=== PATIENT | male | born 1975 | race African-American/Black ===

== ENCOUNTER 2017-09-25 17:48 | Emergency (ER) | payer OTHER ==
[2017-09-25 20:21] LABS: Absolute Lymphocytes (CBC) 3.4 K/uL (0.7-4.9); Absolute Monocytes 0.7 K/uL (0.1-1.3); Absolute Neutrophil 3.7 K/uL (1.8-8.0); Basophils % 1.2 % (0-1.3); Eosinophils % 9.2 % (0-4.4); Hematocrit 39.9 % (39.6-49.0); Lymphocytes % 38.4 % (15.3-44.8); MCH 26.8 pg (27.0-35.0); MPV 7.4 fL (7.6-11.3); Monocytes % 8.3 % (3.3-12.3); RBC Red Blood Cell Count 4.87 M/uL (4.33-5.43)
[2017-09-25] MEDS ORDERED: ONDANSETRON 4 MG/2 ML VIAL ONE (20:29)
[2017-09-25] MEDS ORDERED: MORPHINE 4 MG/ML SYR ONE (20:29)
[2017-09-25] MEDS ORDERED: NA CHLORIDE 0.9% 1,000 ML ONE (20:29)
[2017-09-25 20:35] LABS: Bicarbonate 26 mEq/L (21-31); Glucose Level 120 mg/dL (65-120); Lipase 28 U/L (22-51); Potassium 3.4 mEq/L (3.6-5.0); Sodium Level 137 mEq/L (135-145)
[2017-09-25 20:41] LABS: ALT/SGPT 37 IU/L (10-60); AST/SGOT 40 IU/L (10-42); Albumin 4.3 g/dL (3.2-5.5); Alkaline Phosphatase 56 IU/L (42-121); Amylase Level 49 U/L (28-100); BUN Blood Urea Nitrogen 15 mg/dL (6-20); Bilirubin Direct < 0.1 mg/dL (0-0.2); Bilirubin Total 0.8 mg/dL (0.3-1.2); Protein, Total 7.7 g/dL (6.0-8.3)
[2017-09-25 21:08] LABS: Urine Blood NEGATIVE (NEG); Urine Glucose NEGATIVE (NEG); Urine Protein NEGATIVE (NEG); Urine pH 5.5 (5.0-7.0)
--- NOTE | 2017-09-25 21:13 | RAD REPORT ---
EXAM DESCRIPTION: CT - Stone Protocol - 09/25/2017 8:54 pm CLINICAL HISTORY: Abdominal pain, right flank pain, prior right nephrectomy COMPARISON: July 2015. TECHNIQUE: Axial 5 mm thick images were obtained without oral or IV contrast. The [id number] span s the entirety of the system partially obscuring uppermost abdomen and lung bases. All CT scans are performed using dose optimization technique as appropriate and may include automated exposure control or mA/KV adjustment according to patient size. FINDINGS: No hydronephrosis is present and no obstructing ureteral calculi. No suspicious renal mass es. Isodense masses and pyelonephritis are not excluded on a stone protocol CT scan. No urinary bladd er suspicious finding. No mass or focal abnormality in the right renal fossa. Imaged portions of the liver, spleen and pancreas show no suspicious findings on non-contrast imaging . Gallbladder is contracted. No biliary tree dilatation. No significant adrenal finding. No suspicious bowel findings. Appendix is normal. No mass or bulky lymphadenopathy. Very minimal umbilical hernia is present. There is postsurgical adolfo nge along the lower abdominal wall and subcutaneous fat. No free air, free fluid or inflammatory stra nding. No significant bony abnormality. IMPRESSION: Noncontrast CT abdomen and pelvis imaging shows no acute or suspicious finding. Exam sensitivity is decreased in the absence of oral and IV contrast. No clear change from the 2016 c omparison.
[2017-09-25 21:15] LABS: Urine Bacteria <20 /HPF (NONE SEEN); Urine Culture Reflex Order NOT NEEDED; Urine RBC <5 /HPF (NONE SEEN)
[2017-09-25] MEDS ORDERED: POTASSIUM CL SA 10 MEQ TAB PO ONE (21:21)
--- NOTE | 2017-09-25 21:25 | ER ---
Nurse's Notes [facility] Name: Tony Mckeon Age: 41 yrs Sex: Male : 1975 Arrival Date: 09/25/2017 Time: 17:51 Bed 20 Private MD: Wily Borges B Diagnosis: Right flank pain Presentation: 09/25 18:14 Presenting complaint: Patient states: Right flank pain 10/10 that radiates to front of hb abdomen since last night. Denies urinary s/s. Hx Kidney CA w/ left nephrectomy. Transition of care: patient was not received from another setting of care. Onset of symptoms was September 24, 2017. Risk Assessment: Do you want to hurt yourself or someone else? Patient reports no desire to harm self or others. Care prior to arrival: None. 18:14 Method Of Arrival: Ambulatory hb 18:14 Acuity: KRISTEN 3 hb 20:50 Initial Sepsis Screen: Does the patient meet any 2 criteria? No. Patient's initial bs1 sepsis screen is negative. Does the patient have a suspected source of infection? No. Patient's initial sepsis screen is negative. Historical: - Allergies: 18:17 No Known Allergies; hb - Home Meds: 18:17 Norvasc 10 mg Oral tab 1 tab once daily [Active]; Breo Ellipta 100-25 mcg/dose hb inhalation dsdv 1 puff once daily [Active]; Proventil Inhl [Active]; Symbicort Inh [Active]; Singulair 10 mg Oral tab 1 tab once daily [Active]; - PMHx: 18:17 Asthma; Bipolar disorder; Gout; Hypertension; Renal Cancer; hb - PSHx: 18:17 kidney removal - left; hb - Immunization history:: Adult Immunizations up to date. - Social history:: Smoking status: Patient/guardian denies using tobacco. - Ebola Screening: : No symptoms or risks identified at this time. Screenin:49 Abuse screen: Denies threats or abuse. Denies injuries from another. Nutritional bs1 screening: No deficits noted. Tuberculosis screening: No symptoms or risk factors identified. Fall Risk None identified. Assessment: 20:46 General: Appears in no apparent distress. uncomfortable, well groomed, well nourished, bs1 Behavior is cooperative, anxious. Pain: Complains of pain in right lower/upper abdomen Pain radiates to right flank. 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 Cardiovascular: Denies chest pain, shortness of breath, Heart tones S1 S2 present Capillary refill < 3 seconds Patient's skin is warm and dry. Respiratory: Airway is patent Trachea midline Respiratory effort is even, unlabored, Respiratory pattern is regular, symmetrical, Breath sounds are clear bilaterally. GI: Abdomen is round distended, Bowel sounds present X 4 quads. Abdomen is tender to palpation in right upper quadrant and right lower quadrant Reports lower abdominal pain, upper abdominal pain. : Reports pain in right flank(s). EENT: No signs and/or symptoms were reported regarding the EENT system. Derm: Skin is intact, Skin is pink, warm \T\ dry. Musculoskeletal: Circulation, motion, and sensation intact. Capillary refill < 3 seconds, Range of motion: intact in all extremities. 21:43 Reassessment: PT D/C HOME AMBULATORY WITH FAMILY, DX WITH R FLANK PAIN. bp Vital Signs: 18:15 BP 167 / 104; Pulse 89; Resp 18; Temp 98.3; Pulse Ox 100% on R/A; Weight 88.45 kg; hb Height 5 ft. 7 in. (170.18 cm); Pain 10/10; 21:00 BP 126 / 81; Pulse 48; Resp 16; Pulse Ox 100% ; bp 21:45 BP 118 / 74; Pulse 47; Resp 14; Pulse Ox 98% ; bp 18:15 Body Mass Index 30.54 (88.45 kg, 170.18 cm) hb ED Course: 17:51 Patient arrived in ED. sb2 17:52 Wily Borges MD is Private Physician. sb2 18:15 Triage completed. hb 18:15 Arm band placed on right wrist. hb 19:46 Madhav Walters MD is Attending Physician. pkl 20:06 Inserted saline lock: 20 gauge in right antecubital area, using aseptic technique. bs1 20:10 Onofre Martinez, MICHELLE is Primary Nurse. bp 20:53 CT completed. Patient tolerated procedure well. Patient moved to CT via wheelchair. Patient moved back from CT. 20:54 CT Stone Protocol In Process Unspecified. EDMS 21:00 Patient has correct armband on for positive identification. Bed in low position. Call bp light in reach. Side rails up X2. Adult w/ patient. 21:23 Wily Borges MD is Referral Physician. pkl 21:43 No provider procedures requiring assistance completed. IV discontinued, intact, bp bleeding controlled, No redness/swelling at site. Pressure dressing applied. Administered Medications: 20:33 Drug: morphine 4 mg Route: IVP; Site: right antecubital; bs1 21:21 Follow up: Response: Pain is decreased bp 20:33 Drug: Zofran 4 mg Route: IVP; Site: right antecubital; bs1 21:21 Follow up: Response: Nausea is decreased bp 20:34 Drug: NS 0.9% 1000 ml Route: IV; Rate: 125 ml/hr; Site: right antecubital; bs1 21:46 Follow up: IV Status: Completed infusion; IV Intake: 250ml bp 21:21 Drug: K-Dur 20 mEq Route: PO; bp 21:21 Follow up: Response: No adverse reaction bp Intake: 21:46 IV: 250ml; Total: 250ml. bp Outcome: 21:24 Discharge ordered by . pkl 21:43 Discharged to home ambulatory, with family. bp 21:43 Condition: stable 21:43 Discharge instructions given to patient, Instructed on discharge instructions, follow up and referral plans. medication usage, Demonstrated understanding of instructions, follow-up care, medications, Prescriptions given X 1. 21:45 Patient left the ED. bp Signatures: Dispatcher [employer] EDMS Madhav Walters MD MD pkl Dick Bradley Heather, RN RN hb Peltier, Brian RN RN Idalia Teresa RN RN bs1 Opal Roberson2
--- NOTE | 2017-09-25 21:25 | EDPHYS ---
Physician Documentation [facility] Name: Tony Mckeon Age: 41 yrs Sex: Male : 1975 Arrival Date: 09/25/2017 Time: 17:51 Bed 20 Private MD: Wily Borges B ED Physician Madhav Walters HPI: 09/25 19:55 This 41 yrs old Black Male presents to ER via Ambulatory with complaints of Flank Pain. pkl 19:55 The patient complains of pain in the right flank. Location: right lower quadrant. pkl Onset: The symptoms/episode began/occurred last night. Associated signs and symptoms: Pertinent positives: nausea. Patient has left kidney removed for renal cancer 6 years ago. Historical: - Allergies: 18:17 No Known Allergies; hb - Home Meds: 18:17 Norvasc 10 mg Oral tab 1 tab once daily [Active]; Breo Ellipta 100-25 mcg/dose hb inhalation dsdv 1 puff once daily [Active]; Proventil Inhl [Active]; Symbicort Inh [Active]; Singulair 10 mg Oral tab 1 tab once daily [Active]; - PMHx: 18:17 Asthma; Bipolar disorder; Gout; Hypertension; Renal Cancer; hb - PSHx: 18:17 kidney removal - left; hb - Immunization history:: Adult Immunizations up to date. - Social history:: Smoking status: Patient/guardian denies using tobacco. - Ebola Screening: : No symptoms or risks identified at this time. ROS: 19:55 Eyes: Negative for injury, pain, redness, and discharge, ENT: Negative for injury, pkl pain, and discharge, Neck: Negative for injury, pain, and swelling, Cardiovascular: Negative for chest pain, palpitations, and edema, Respiratory: Negative for shortness of breath, cough, wheezing, and pleuritic chest pain, Abdomen/GI: Negative for abdominal pain, nausea, vomiting, diarrhea, and constipation. 19:55 Back: Positive for flank pain, on the right. 19:55 : Negative for urinary symptoms. 19:55 MS/extremity: Negative for acute changes. 19:55 Skin: Negative for rash. 19:55 Neuro: Negative for altered mental status. Exam: 19:55 Head/Face: Normocephalic, atraumatic. Eyes: Pupils equal round and reactive to light, pkl extra-ocular motions intact. Lids and lashes normal. Conjunctiva and sclera are non-icteric and not injected. Cornea within normal limits. Periorbital areas with no swelling, redness, or edema. ENT: Nares patent. No nasal discharge, no septal abnormalities noted. Tympanic membranes are normal and external auditory canals are clear. Oropharynx with no redness, swelling, or masses, exudates, or evidence of obstruction, uvula midline. Mucous membranes moist. Neck: Trachea midline, no thyromegaly or masses palpated, and no cervical lymphadenopathy. Supple, full range of motion without nuchal rigidity, or vertebral point tenderness. No Meningismus. Chest/axilla: Normal chest wall appearance and motion. Nontender with no deformity. No lesions are appreciated. Cardiovascular: Regular rate and rhythm with a normal S1 and S2. No gallops, murmurs, or rubs. Normal PMI, no JVD. No pulse deficits. Respiratory: Lungs have equal breath sounds bilaterally, clear to auscultation and percussion. No rales, rhonchi or wheezes noted. No increased work of breathing, no retractions or nasal flaring. Abdomen/GI: Soft, non-tender, with normal bowel sounds. No distension or tympany. No guarding or rebound. No evidence of tenderness throughout. 19:55 Back: pain, that is moderate, of the right flank. 19:55 : Exam negative for acute changes. 19:55 Musculoskeletal/extremity: Exam is negative for acute changes. 19:55 Skin: Exam negative for rash. 19:55 Neuro: Orientation: is normal, Mentation: is normal, Cranial nerves: grossly normal, Motor: is normal. Vital Signs: 18:15 BP 167 / 104; Pulse 89; Resp 18; Temp 98.3; Pulse Ox 100% on R/A; Weight 88.45 kg; hb Height 5 ft. 7 in. (170.18 cm); Pain 10/10; 21:00 BP 126 / 81; Pulse 48; Resp 16; Pulse Ox 100% ; bp 21:45 BP 118 / 74; Pulse 47; Resp 14; Pulse Ox 98% ; bp 18:15 Body Mass Index 30.54 (88.45 kg, 170.18 cm) hb MDM: 19:46 Patient medically screened. pkl 21:23 Data reviewed: vital signs, nurses notes, lab test result(s), radiologic studies, CT pkl scan. 09/25 19:55 Order name: Amylase, Serum pkl 09/25 19:55 Order name: Basic Metabolic Panel pkl 09/25 19:55 Order name: CBC with Diff pkl 09/25 19:55 Order name: Creatinine for Radiology; Complete Time: 20:35 pkl 09/25 19:55 Order name: Hepatic Function; Complete Time: 20:44 pkl 09/25 19:55 Order name: Lipase; Complete Time: 20:44 pkl 09/25 19:55 Order name: Urine Microscopic Only; Complete Time: 21:18 pkl 09/25 19:55 Order name: Amylase Level; Complete Time: 20:44 EDMS 09/25 19:55 Order name: Basic Metabolic Panel; Complete Time: 20:44 EDMS 09/25 19:55 Order name: CBC with Automated Diff; Complete Time: 20:34 EDMS 09/25 20:33 Order name: Urine Dipstick--Ancillary (enter results); Complete Time: 21:09 ms 09/25 20:36 Order name: CT Stone Protocol; Complete Time: 21:18 pkl 09/25 19:55 Order name: IV Saline Lock; Complete Time: 20:26 pkl 09/25 19:55 Order name: Labs collected and sent; Complete Time: 20:34 pkl 09/25 19:55 Order name: Urine Dipstick-Ancillary (obtain specimen); Complete Time: 21:25 pkl Administered Medications: 20:33 Drug: morphine 4 mg Route: IVP; Site: right antecubital; bs1 21:21 Follow up: Response: Pain is decreased bp 20:33 Drug: Zofran 4 mg Route: IVP; Site: right antecubital; bs1 21:21 Follow up: Response: Nausea is decreased bp 20:34 Drug: NS 0.9% 1000 ml Route: IV; Rate: 125 ml/hr; Site: right antecubital; bs1 21:46 Follow up: IV Status: Completed infusion; IV Intake: 250ml bp 21:21 Drug: K-Dur 20 mEq Route: PO; bp 21:21 Follow up: Response: No adverse reaction bp Disposition: 09/25/17 21:24 Discharged to Home. Impression: Right flank pain. - Condition is Stable. - Prescriptions for Tylenol- Codeine #3 300-30 mg Oral Tablet - take 1 tablet by ORAL route every 6 hours As needed; 20 tablet. - Medication Reconciliation Form, Thank You Letter, Antibiotic Education, Prescription Opioid Use, Work release form form. - Follow up: Wily Borges MD; When: 2 - 3 days; Reason: Re-evaluation by your physician. - Problem is new. - Symptoms have improved. Signatures: Dispatcher [employer] EDMS Madhav Walters MD MD pkl Lucina Thompson, RN RN Onofre Martinez, RN RN bp Idalia Torres RN RN bs1 Corrections: (The following items were deleted from the chart) 21:45 21:24 09/25/2017 21:24 Discharged to Home. Impression: Right flank pain. Condition is bp Stable. Forms are Medication Reconciliation Form, Thank You Letter, Antibiotic Education, Prescription Opioid Use. Follow up: Wily Borges; When: 2 - 3 days; Reason: Re-evaluation by your physician. Problem is new. Symptoms have improved. pkl
== END 2017-09-25 21:45 | disposition home or self-care (01) ==
LOC: ER 17:48
DX: R10.9 Unspecified abdominal pain (principal); I10 Essential (primary) hypertension; F31.9 Bipolar disorder, unspecified; Z85.528 Personal history of other malignant neoplasm of kidney
CPT/HCPCS: 36415; 74176; 76377; 80048; 80076; 82150; 83690; 85025; J2405; J7030; 81003; 81015; 96361; 96374; 96375; 99284

== ENCOUNTER 2017-11-07 11:09 | Emergency (ER) | payer OTHER ==
--- NOTE | 2017-11-07 13:25 | EDPHYS ---
Physician Documentation [facility] Name: Tony Mckeon Age: 41 yrs Sex: Male : 1975 Arrival Date: 11/07/2017 Time: 11:14 Bed 23 Private MD: Wily Borges B ED Physician Lester Navarro HPI: 11/07 13:13 This 41 yrs old Black Male presents to ER via Ambulatory with complaints of Skin adolfo Problem. 13:13 The patient presents to the emergency department with pain in the rectal area, that is adolfo moderate. Onset: The symptoms/episode began/occurred 3 day(s) ago. Context: the patient has no known special context relating to the rectal area complaint(s). Modifying factors: The symptoms are alleviated by remaining still, The symptoms are aggravated by bowel movement, sitting position. Associate signs and symptoms: The patient has no apparent associated signs or symptoms. The patient has not experienced similar symptoms in the past. Historical: - Allergies: 11: No Known Allergies; aj - Home Meds: : Breo Ellipta 100-25 mcg/dose inhalation dsdv 1 puff once daily [Active]; Norvasc 10 mg aj Oral tab 1 tab once daily [Active]; Proventil Inhl [Active]; - PMHx: 11:29 Asthma; Bipolar disorder; Gout; Hypertension; Renal Cancer; aj - PSHx: 11:29 kidney removal - right; aj - Immunization history:: Adult Immunizations up to date. - Social history:: Smoking status: Patient/guardian denies using tobacco. - Ebola Screening: : Patient negative for fever greater than or equal to 101.5 degrees Fahrenheit, and additional compatible Ebola Virus Disease symptoms Patient denies exposure to infectious person Patient denies travel to an Ebola-affected area in the 21 days before illness onset No symptoms or risks identified at this time. - Family history:: not pertinent. ROS: 13:13 Constitutional: Negative for fever, chills, and weight loss, Eyes: Negative for injury, adolfo pain, redness, and discharge, ENT: Negative for injury, pain, and discharge, Neck: Negative for injury, pain, and swelling, Cardiovascular: Negative for chest pain, palpitations, and edema, Respiratory: Negative for shortness of breath, cough, wheezing, and pleuritic chest pain, Back: Negative for injury and pain, : Negative for injury, bleeding, discharge, and swelling, MS/Extremity: Negative for injury and deformity, Skin: Negative for injury, rash, and discoloration, Neuro: Negative for headache, weakness, numbness, tingling, and seizure, Psych: Negative for depression, anxiety, suicide ideation, homicidal ideation, and hallucinations, Allergy/Immunology: Negative for hives, rash, and allergies, Endocrine: Negative for neck swelling, polydipsia, polyuria, polyphagia, and marked weight changes, Hematologic/Lymphatic: Negative for swollen nodes, abnormal bleeding, and unusual bruising. 13:13 Abdomen/GI: Positive for abdominal pain, rectal pain. Exam: 13:13 Constitutional: This is a well developed, well nourished patient who is awake, alert, adolfo and in no acute distress. Head/Face: Normocephalic, atraumatic. Eyes: Pupils equal round and reactive to light, extra-ocular motions intact. Lids and lashes normal. Conjunctiva and sclera are non-icteric and not injected. Cornea within normal limits. Periorbital areas with no swelling, redness, or edema. ENT: Nares patent. No nasal discharge, no septal abnormalities noted. Tympanic membranes are normal and external auditory canals are clear. Oropharynx with no redness, swelling, or masses, exudates, or evidence of obstruction, uvula midline. Mucous membranes moist. Neck: Trachea midline, no thyromegaly or masses palpated, and no cervical lymphadenopathy. Supple, full range of motion without nuchal rigidity, or vertebral point tenderness. No Meningismus. Chest/axilla: Normal chest wall appearance and motion. Nontender with no deformity. No lesions are appreciated. Cardiovascular: Regular rate and rhythm with a normal S1 and S2. No gallops, murmurs, or rubs. Normal PMI, no JVD. No pulse deficits. Respiratory: Lungs have equal breath sounds bilaterally, clear to auscultation and percussion. No rales, rhonchi or wheezes noted. No increased work of breathing, no retractions or nasal flaring. Back: No spinal tenderness. No costovertebral tenderness. Full range of motion. Male : Normal genitalia with no discharge or lesions. Skin: Warm, dry with normal turgor. Normal color with no rashes, no lesions, and no evidence of cellulitis. MS/ Extremity: Pulses equal, no cyanosis. Neurovascular intact. Full, normal range of motion. Neuro: Awake and alert, GCS 15, oriented to person, place, time, and situation. Cranial nerves II-XII grossly intact. Motor strength 5/5 in all extremities. Sensory grossly intact. Cerebellar exam normal. Normal gait. Psych: Awake, alert, with orientation to person, place and time. Behavior, mood, and affect are within normal limits. 13:13 Abdomen/GI: Rectal exam: tenderness, that is moderate, at 9 am internally before the anal verge, firmness, consistent with hemerroid. Vital Signs: 11:29 BP 149 / 109; Pulse 69; Resp 18; Temp 98.6; Pulse Ox 98% on R/A; Weight 86.18 kg; aj Height 5 ft. 7 in. (170.18 cm); 13:38 BP 148 / 96; Pulse 70; Resp 18; Pulse Ox 98% on R/A; kr2 11:29 Body Mass Index 29.76 (86.18 kg, 170.18 cm) MDM: 12:42 [facility]. [facility] 13:13 Data reviewed: vital signs, nurses notes. [facility] Administered Medications: 13:35 Drug: Motrin 800 mg Route: PO; kr2 13:40 Follow up: Response: Medication administered at discharge. [facility] 13:35 Drug: Cipro 500 mg Route: PO; kr2 13:40 Follow up: Response: Medication administered at discharge. kr2 Disposition: 11/07/17 13:24 Discharged to Home. Impression: Other hemorrhoids - painful, internal. - Condition is Stable. - Discharge Instructions: High-Fiber Diet, Hemorrhoids, How to Take a Sitz Bath, Hemorrhoids, [id number], Surgical Procedures for Hemorrhoids, Nonsurgical Procedures for Hemorrhoids, Care After, Nonsurgical Procedures for Hemorrhoids. - Prescriptions for Colace 100 mg Oral Tablet - take 1 tablet by ORAL route every 12 hours; 14 tablet. Tylenol- Codeine #3 300-30 mg Oral Tablet - take 2 tablets by ORAL route every 6 hours As needed; 25 tablet. Cipro 500 mg Oral Tablet - take 1 tablet by ORAL route every 12 hours for 7 days; 14 tablet. Anusol- HC 25 mg Rectal Suppository - insert 1 suppository by RECTAL route every 12 hours As needed; 20 suppository. - Medication Reconciliation Form, Thank You Letter, Antibiotic Education, Prescription Opioid Use, Work release form form. - Follow up: Wily Borges MD; When: 2 - 3 days; Reason: Recheck today's complaints, Continuance of care, Re-evaluation by your physician. Follow up: Celio Zamora MD; When: 1 - 2 days; Reason: Recheck today's complaints, Re-evaluation by your physician. Follow up: Judy Rodríguez MD; When: 2 - 3 days; Reason: Recheck today's complaints, Re-evaluation by your physician. - Problem is new. - Symptoms have improved. Signatures: Lea Rocha RN RN Lester Main MD MD cha Reaves, Karey, RN RN kr2 Corrections: (The following items were deleted from the chart) 13:26 13:24 11/07/2017 13:24 Discharged to Home. Impression: Other hemorrhoids - painful, adolfo internal. Condition is Stable. Forms are Medication Reconciliation Form, Thank You Letter, Antibiotic Education, Prescription Opioid Use. Follow up: Wily Borges; When: 2 - 3 days; Reason: Recheck today's complaints, Continuance of care, Re-evaluation by your physician. Follow up: Celio Zamora; When: 1 - 2 days; Reason: Recheck today's complaints, Re-evaluation by your physician. Problem is new. Symptoms have improved. adolfo 13:40 13:26 11/07/2017 13:24 Discharged to Home. Impression: Other hemorrhoids - painful, kr2 internal. Condition is Stable. Discharge Instructions: High-Fiber Diet, Hemorrhoids, How to Take a Sitz Bath, Hemorrhoids, [id number], Surgical Procedures for Hemorrhoids, Nonsurgical Procedures for Hemorrhoids, Care After, Nonsurgical Procedures for Hemorrhoids. Prescriptions for Colace 100 mg Oral Tablet - take 1 tablet by ORAL route every 12 hours; 14 tablet, Tylenol-Codeine #3 300-30 mg Oral Tablet - take 2 tablets by ORAL route every 6 hours As needed; 25 tablet, Cipro 500 mg Oral Tablet - take 1 tablet by ORAL route every 12 hours for 7 days; 14 tablet, Anusol-HC 25 mg Rectal Suppository - insert 1 suppository by RECTAL route every 12 hours As needed; 20 suppository. and Forms are Medication Reconciliation Form, Thank You Letter, Antibiotic Education, Prescription Opioid Use. Follow up: Wily Borges; When: 2 - 3 days; Reason: Recheck today's complaints, Continuance of care, Re-evaluation by your physician. Follow up: Celio Zamora; When: 1 - 2 days; Reason: Recheck today's complaints, Re-evaluation by your physician. Follow up: Judy Rodríguez; When: 2 - 3 days; Reason: Recheck today's complaints, Re-evaluation by your physician. Problem is new. Symptoms have improved. adolfo
--- NOTE | 2017-11-07 13:25 | ER ---
Nurse's Notes [facility] Name: Tony Mckeon Age: 41 yrs Sex: Male : 1975 Arrival Date: 11/07/2017 Time: 11:14 Bed 23 Private MD: Wily Borges B Diagnosis: Other hemorrhoids-painful, internal Presentation: 11/07 11:27 Presenting complaint: Patient states: "I have a boil next to my anus, my said it aj was a hemorrhoid. It's painful". Transition of care: patient was not received from another setting of care. Onset of symptoms was October 19, 2017. Risk Assessment: Do you want to hurt yourself or someone else? Patient reports no desire to harm self or others. Initial Sepsis Screen: Does the patient meet any 2 criteria? No. Patient's initial sepsis screen is negative. Does the patient have a suspected source of infection? No. Patient's initial sepsis screen is negative. Care prior to arrival: None. 11:27 Method Of Arrival: Ambulatory 11:27 Acuity: KRISTEN 3 aj Triage Assessment: 11:29 General: Appears in no apparent distress. comfortable, Behavior is calm, cooperative, aj appropriate for age. Pain: Complains of pain in anus. Neuro: Level of Consciousness is awake, alert, obeys commands, Oriented to person, place, time, situation, Appropriate for age. Respiratory: Airway is patent Respiratory effort is even, unlabored, Respiratory pattern is regular, symmetrical. : Reports pain at rectum. Derm: Skin is intact, is healthy with good turgor, Skin is pink, warm \\T\\ dry. normal. Historical: - Allergies: 11: No Known Allergies; aj - Home Meds: 11: Breo Ellipta 100-25 mcg/dose inhalation dsdv 1 puff once daily [Active]; Norvasc 10 mg aj Oral tab 1 tab once daily [Active]; Proventil Inhl [Active]; - PMHx: 11: Asthma; Bipolar disorder; Gout; Hypertension; Renal Cancer; aj - PSHx: 11: kidney removal - right; aj - Immunization history:: Adult Immunizations up to date. - Social history:: Smoking status: Patient/guardian denies using tobacco. - Ebola Screening: : Patient negative for fever greater than or equal to 101.5 degrees Fahrenheit, and additional compatible Ebola Virus Disease symptoms Patient denies exposure to infectious person Patient denies travel to an Ebola-affected area in the 21 days before illness onset No symptoms or risks identified at this time. - Family history:: not pertinent. Screenin:38 Abuse screen: Denies threats or abuse. Denies injuries from another. Nutritional kr2 screening: No deficits noted. Tuberculosis screening: No symptoms or risk factors identified. Fall Risk None identified. Assessment: 13:10 General: Appears in no apparent distress. uncomfortable, well groomed, well developed, kr2 well nourished, Behavior is calm, cooperative, appropriate for age. Pain: Complains of pain in anus Pain currently is 8 out of 10 on a pain scale. Quality of pain is described as burning, tender, Is continuous, Alleviated by rest, Aggravated by increased activity. Neuro: Level of Consciousness is awake, alert, obeys commands, Oriented to person, place, time, situation, Appropriate for age. Cardiovascular: Capillary refill < 3 seconds in bilateral fingers. Respiratory: Airway is patent Respiratory effort is even, unlabored, Respiratory pattern is regular, symmetrical. GI: Abdomen is round non-distended. : No signs and/or symptoms were reported regarding the genitourinary system. EENT: Oral mucosa is moist. Derm: Skin is healthy with good turgor, Skin is pink, warm \\T\\ dry. Musculoskeletal: Circulation, motion, and sensation intact. Vital Signs: 11:29 BP 149 / 109; Pulse 69; Resp 18; Temp 98.6; Pulse Ox 98% on R/A; Weight 86.18 kg; aj Height 5 ft. 7 in. (170.18 cm); 13:38 BP 148 / 96; Pulse 70; Resp 18; Pulse Ox 98% on R/A; kr2 11:29 Body Mass Index 29.76 (86.18 kg, 170.18 cm) ED Course: 11:14 Patient arrived in ED. jb7 11:15 Wily Borges MD is Private Physician. jb7 11:28 Triage completed. aj 11:29 Arm band placed on right wrist. Patient placed in waiting room, Patient notified of wait time. 12:42 Lester Navarro MD is Attending Physician. [facility] 12:54 Anitra Mitchell RN is Primary Nurse. kr2 13:21 Wily Borges MD is Referral Physician. [facility] 13:21 Celio Zamora MD is Referral Physician. [facility] 13:26 Judy Rodríguez MD is Referral Physician. [facility] 13:30 No provider procedures requiring assistance completed. Patient did not have IV access kr2 during this emergency room visit. 13:38 Patient has correct armband on for positive identification. Bed in low position. Call kr2 light in reach. Side rails up X 1. Pulse ox on. NIBP on. Door closed. Head of bed elevated. Administered Medications: 13:35 Drug: Motrin 800 mg Route: PO; kr2 13:40 Follow up: Response: Medication administered at discharge. kr2 13:35 Drug: Cipro 500 mg Route: PO; kr2 13:40 Follow up: Response: Medication administered at discharge. kr2 Outcome: 13:24 Discharge ordered by MD. [facility] 13:30 Discharged to home ambulatory. kr2 13:30 Condition: good 13:30 Discharge instructions given to patient, Instructed on discharge instructions, follow up and referral plans. medication usage, Demonstrated understanding of instructions, follow-up care, medications, Prescriptions given X 4. 13:40 Patient left the ED. kr2 Signatures: Lea Rocha, RN RN Lester Main MD MD cha Bryant, Jason jb7 Anitra Mitchell RN RN kr2 Corrections: (The following items were deleted from the chart) 20:51 13:30 Discharge instructions given to patient, Instructed on discharge instructions, kr2 follow up and referral plans. medication usage, Demonstrated understanding of instructions, follow-up care, medications, Prescriptions given X 3, kr2
[2017-11-07] MEDS ORDERED: CIPROFLOXACIN HCL 500 MG TAB ONE (13:31)
[2017-11-07] MEDS ORDERED: IBUPROFEN 400 MG TAB ONE (13:31)
== END 2017-11-07 13:40 | disposition home or self-care (01) ==
LOC: ER 11:09
DX: K64.8 Other hemorrhoids (principal); I10 Essential (primary) hypertension
CPT/HCPCS: 99283

== ENCOUNTER 2018-07-05 09:30 | Emergency (ER) | payer OTHER ==
[2018-07-05 10:03] LABS: Absolute Monocytes 0.6 K/uL (0.1-1.3); Basophils % 1.1 % (0-1.3); Eosinophils % 7.1 % (0-4.4); Hematocrit 41.9 % (39.6-49.0); Lymphocytes % 28.2 % (15.3-44.8); MPV 7.5 fL (7.6-11.3); Protime INR 0.96; RBC Red Blood Cell Count 4.99 M/uL (4.33-5.43)
--- NOTE | 2018-07-05 10:09 | RAD REPORT ---
EXAM DESCRIPTION: RAD - Chest Single View - 07/05/2018 10:03 am CLINICAL HISTORY: CHEST PAIN Chest pain. COMPARISON: CHEST SINGLE VIEW dated 04/01/2015; CHEST SINGLE VIEW dated 03/30/2015; CHEST SINGLE VIE W dated 09/30/2014; CHEST PA AND LAT 2 VIEW dated 10/15/2012 FINDINGS: Portable technique limits examination quality. The lungs are grossly clear. The heart is normal in size. No displaced fractures. IMPRESSION: No acute intrathoracic process suspected.
[2018-07-05 10:35] LABS: ALT/SGPT 29 U/L (12-78); AST/SGOT 17 U/L (15-37); Albumin 3.9 g/dL (3.4-5.0); Alkaline Phosphatase 72 U/L (45-117); BUN Blood Urea Nitrogen 23 mg/dL (7-18); Bicarbonate 25 mmol/L (21-32); Bilirubin Direct < 0.1 mg/dL (0-0.2); Bilirubin Total 0.5 mg/dL (0.2-1.0); Glucose Level 101 mg/dL (74-106); NT PRO-BNP 19 pg/mL (<125); Sodium Level 144 mmol/L (136-145); Troponin (Emerg Dept Use Only) < 0.02 ng/mL (0.0-0.045)
--- NOTE | 2018-07-05 10:44 | EKG ---
Test Date: 2018-07-05 Test Time: 09:49:13 Director Social Service: DORCAS MEASUREMENT RESULTS: Intervals: Rate: 69 ID: [id number] QRSD: 86 QT: 380 QTc: 407 [place]: P: 47 ID: [id number] QRS: 66 T: -30 INTERPRETIVE STATEMENTS: Normal sinus rhythm Minimal voltage criteria for LVH, may be normal variant T wave abnormality, consider inferior ischemia Abnormal ECG Compared to ECG 06/08/2015 18:45:12 Possible ischemia now present Sinus arrhythmia no longer present T-wave abnormality still present Electronically Signed On 07-05-18 10:43:19 CDT by Adrian Roy
[2018-07-05] MEDS ORDERED: predniSONE 20 MG TAB ONE (12:37)
[2018-07-05] MEDS ORDERED: ALBUTEROL 2.5 MG/3 ML NEB SOL ONE (12:37)
[2018-07-05] MEDS ORDERED: IPRATROPIUM BROM 0.5MG/2.5ML ONE (12:37)
--- NOTE | 2018-07-05 13:06 | ER ---
Nurse's Notes [facility] Name: Tony Mckeon Age: 42 yrs Sex: Male : 1975 Arrival Date: 07/05/2018 Time: 09:33 Bed 6 Private MD: Wily Borges B Diagnosis: Chest pain, unspecified;Bronchitis and pneumonitis due to chemicals, gases, fumes and vapors Presentation: 07/05 09:45 Presenting complaint: Patient states: chest pain and headaches x 3 days. Denies fever, ss cough. Transition of care: patient was not received from another setting of care. Onset of symptoms was July 04, 2018. Risk Assessment: Do you want to hurt yourself or someone else? Patient reports no desire to harm self or others. Initial Sepsis Screen: Does the patient meet any 2 criteria? No. Patient's initial sepsis screen is negative. Does the patient have a suspected source of infection? No. Patient's initial sepsis screen is negative. Care prior to arrival: None. 09:45 Method Of Arrival: Ambulatory ss 09:45 Acuity: KRISTEN 3 ss Historical: - Allergies: 09:48 No Known Allergies; ss - Home Meds: 09:48 Breo Ellipta 100-25 mcg/dose inhalation dsdv 1 puff once daily [Active]; Albuterol Inhl ss [Active]; "something for blood pressure" [Active]; - PMHx: 09:48 Asthma; Bipolar disorder; Gout; Hypertension; Renal Cancer; ss - PSHx: 09:48 R nephrectomy; ss - Immunization history:: Adult Immunizations up to date. - Social history:: Smoking status: Patient/guardian denies using tobacco. - Ebola Screening: : Patient denies exposure to infectious person Patient denies travel to an Ebola-affected area in the 21 days before illness onset. Screenin:50 Abuse screen: Denies threats or abuse. Denies injuries from another. Nutritional bp screening: No deficits noted. Tuberculosis screening: No symptoms or risk factors identified. Fall Risk None identified. Assessment: 09:45 General: Appears in no apparent distress. comfortable, Behavior is calm, cooperative, bp appropriate for age. Pain: Complains of pain in chest Pain does not radiate. Pain began 2-3 days ago. Neuro: Level of Consciousness is awake, alert, obeys commands, Oriented to person, place, time, situation, Appropriate for age. Cardiovascular: Rhythm is sinus rhythm. Respiratory: Airway is patent Respiratory effort is even, unlabored, Respiratory pattern is regular, symmetrical. GI: No signs and/or symptoms were reported involving the gastrointestinal system. : No signs and/or symptoms were reported regarding the genitourinary system. EENT: No deficits noted. Derm: No deficits noted. Musculoskeletal: Circulation, motion, and sensation intact. Range of motion: intact in all extremities. 11:10 Reassessment: Patient appears in no apparent distress at this time. Patient and/or ch family updated on plan of care and expected duration. Pain level reassessed. Patient is alert, oriented x 3, equal unlabored respirations, skin warm/dry/pink. pt c/o increase in headache, orders obtained for medication per pt request. 11:58 Reassessment: Patient appears in no apparent distress at this time. No changes from ch previously documented assessment. Patient and/or family updated on plan of care and expected duration. Pain level reassessed. Patient is alert, oriented x 3, equal unlabored respirations, skin warm/dry/pink. pt states he still hurts, song notified of pt status. Vital Signs: 09:48 Resp 15; Temp 97.6(TE); Weight 95.25 kg; Height 5 ft. 7 in. (170.18 cm); Pain 8/10; ss 11:10 BP 126 / 81; Pulse 71; Resp 16; Pulse Ox 99% on R/A; Pain 9/10; ch 11:58 BP 120 / 74; Pulse 66; Resp 15; Pulse Ox 97% on R/A; Pain 7/10; ch 13:15 BP 116 / 64; Pulse 62; Resp 16; Temp 97.7; Pulse Ox 99% on R/A; Pain 2/10; sg 09:48 Body Mass Index 32.89 (95.25 kg, 170.18 cm) ED Course: 09:33 Patient arrived in ED. mr 09:33 Wily Borges MD is Private Physician. mr 09:45 Onofre Martinez, MICHELLE is Primary Nurse. bp 09:46 Triage completed. ss 09:48 Arm band placed on right wrist. ss 09:50 Patient has correct armband on for positive identification. Bed in low position. Call bp light in reach. Side rails up X2. activities assistant on. Pulse ox on. NIBP on. 09:50 Initial lab(s) drawn, by me, sent to lab. Inserted saline lock: 20 gauge in right dh3 antecubital area, using aseptic technique. Blood collected. 09:53 EKG done, by auto repair technician. reviewed by Lee Matthews MD. at1 09:54 Song Duron NP is PHCP. pm1 09:54 Lee Matthews MD is Attending Physician. pm1 10:02 X-ray completed. Portable x-ray completed in exam room. Patient tolerated procedure jb2 well. 10:03 XRAY Chest (1 view) In Process Unspecified. EDMS 13:15 No provider procedures requiring assistance completed. IV discontinued, intact, sg bleeding controlled, No redness/swelling at site. Pressure dressing applied. Patient maintains SpO2 saturation greater than 95% on room air. Administered Medications: 11:24 Drug: TORadol 30 mg Route: IVP; Site: right antecubital; bp 11:58 Follow up: Response: No adverse reaction 12:25 Drug: Albuterol - atroVENT (3:1) (2.5 mg - 0.5 mg) 3 ml Route: Nebulizer; bp 13:15 Follow up: Response: No adverse reaction; Marked relief of symptoms 12:25 Drug: predniSONE 60 mg Route: PO; bp 13:15 Follow up: Response: No adverse reaction ss Outcome: 13:05 Discharge ordered by . pm1 13:15 Discharged to home ambulatory, with family. sg 13:15 Condition: good 13:15 Discharge instructions given to patient, Instructed on discharge instructions, follow up and referral plans. no drinking with medication, no driving heavy equipment, medication usage, safety practices, Demonstrated understanding of instructions, follow-up care, medications, Prescriptions given X 1. 13:19 Patient left the ED. ss Signatures: Dispatcher [employer] EDMS Lisa Barrientos, RN RN Hung Caruso RN RN Namrata Cruz, Raheem jb2 Andie Hernández RN RN Lea London, rod tape operator EKG Tat1 Song Duron NP [employer] pm1 Marta Villatoro 3 Onofre Martinez RN RN bp
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
== END 2018-07-05 13:19 | disposition home or self-care (01) ==
LOC: ER 09:30
DX: J68.0 Bronchitis and pneumonitis due to chemicals, gases, fumes and vapors (principal); C64.9 Malignant neoplasm of unspecified kidney, except renal pelvis; J45.909 Unspecified asthma, uncomplicated; F31.9 Bipolar disorder, unspecified; M10.9 Gout, unspecified; I10 Essential (primary) hypertension
CPT/HCPCS: 36415; 71045; 80048; 80076; 83735; 83880; 84484; 85025; 85610; 93005; 94640; 96374; 99285; J7512

== ENCOUNTER 2018-10-12 12:43 | Emergency (ER) | payer OTHER, SELFPAY ==
[2018-10-12 14:23] LABS: Absolute Lymphocytes (CBC) 2.3 K/uL (0.7-4.9); Basophils % 1.2 % (0-1.3); Hematocrit 45.9 % (39.6-49.0); Lymphocytes % 29.4 % (15.3-44.8); MPV 7.4 fL (7.6-11.3); Monocytes % 10.5 % (3.3-12.3); RBC Red Blood Cell Count 5.54 M/uL (4.33-5.43)
[2018-10-12 14:43] LABS: Albumin 4.4 g/dL (3.4-5.0); Bilirubin Direct 0.2 mg/dL (0-0.2); Potassium 4.2 mmol/L (3.5-5.1); Protein, Total 8.7 g/dL (6.4-8.2)
[2018-10-12 14:45] LABS: Urine Amorphous Sediment 1+ /HPF (NONE SEEN); Urine Bacteria <20 /HPF (NONE SEEN); Urine Culture Reflex Order NOT NEEDED; Urine Mucus 2+ /HPF (NONE SEEN); Urine RBC <5 /HPF (NONE SEEN)
[2018-10-12 14:46] LABS: Urine Blood NEGATIVE (NEG); Urine Glucose NEGATIVE (NEG); Urine Protein 1+ (NEG); Urine pH 5.5 (5.0-7.0)
--- NOTE | 2018-10-12 15:17 | RAD REPORT ---
EXAM DESCRIPTION: CT - Abdomen Pelvis Wo Contrast - 10/12/2018 3:09 pm CLINICAL HISTORY: Abdominal pain, vomiting history of renal cell carcinoma with right nephrectomy COMPARISON: September 2017 TECHNIQUE: Axial [address] imaging of the abdomen and pelvis was performed without IV contrast. No IV contrast was given because of allergy, abnormal renal function, patient refusal or physician re quest. Oral contrast was given. All CT scans are performed using dose optimization technique as appropriate and may include automated exposure control or mA/KV adjustment according to patient size. FINDINGS: No suspicious findings in the lung bases. The liver, spleen and pancreas show no suspicious findings on non-contrast imaging. Gallbladder and b iliary tree are also without suspicious finding. No hydronephrosis or suspicious renal mass. No significant adrenal finding. Isodense renal masses an d pyelonephritis cannot be excluded in the absence of IV contrast. The urinary bladder is without sig nificant finding. No abnormality at the right renal surgical site No dilated bowel loops or bowel wall thickening. No free air, free fluid or inflammatory stranding. N o hernia, mass or bulky lymphadenopathy. Appendix is normal. No suspicious bony findings. IMPRESSION: Non-contrast enhanced CT abdomen and pelvis imaging show no significant or suspicious fi nding. Full assessment is limited is the absence of IV contrast. Isodense masses and pyelonephritis are not excluded on noncontrast imaging.
[2018-10-12] MEDS ORDERED: NA CHLORIDE 0.9% 1,000 ML ONE (15:44)
--- NOTE | 2018-10-12 15:44 | ER ---
Nurse's Notes [facility] Name: Tony Mckeon Age: 42 yrs Sex: Male : 1975 Arrival Date: 10/12/2018 Time: 12:45 Bed 16 Private MD: Diagnosis: Unspecified abdominal pain;Chronic kidney disease, unspecified Presentation: 10/12 13:09 Presenting complaint: Patient states: abd pain X 1 month, feels like knots, vomited iw once today, can't hold water down today, pain radiates to back, hx of kidney cancer, only has one kidney, denies urinary symptoms. Transition of care: patient was not received from another setting of care. Onset of symptoms was August 2018. Risk Assessment: Do you want to hurt yourself or someone else? Patient reports no desire to harm self or others. Initial Sepsis Screen: Does the patient meet any 2 criteria? No. Patient's initial sepsis screen is negative. Does the patient have a suspected source of infection? No. Patient's initial sepsis screen is negative. Care prior to arrival: None. 13:09 Method Of Arrival: Ambulatory iw 13:09 Acuity: KRISTEN 3 iw Historical: - Allergies: 13:11 No Known Allergies; iw - Home Meds: 13:11 Norvasc 10 mg Oral tab 1 tab once daily [Active]; iw - PMHx: 13:11 Asthma; Bipolar disorder; Gout; Hypertension; Renal Cancer; iw - PSHx: 13:11 R nephrectomy; iw - Immunization history:: Adult Immunizations up to date. - Social history:: Smoking status: Patient/guardian denies using tobacco. - Ebola Screening: : Patient negative for fever greater than or equal to 101.5 degrees Fahrenheit, and additional compatible Ebola Virus Disease symptoms Patient denies exposure to infectious person Patient denies travel to an Ebola-affected area in the 21 days before illness onset No symptoms or risks identified at this time. Screenin:23 Abuse screen: Denies threats or abuse. Denies injuries from another. Nutritional aj1 screening: No deficits noted. Tuberculosis screening: No symptoms or risk factors identified. 17:35 Fall Risk None identified. iw Assessment: 13:23 General: Appears in no apparent distress. uncomfortable, Behavior is cooperative, aj1 appropriate for age, restless. Pain: Complains of pain in abdomen diffusely Pain radiates to back Pain currently is 10 out of 10 on a pain scale. Quality of pain is described as "like knots". Neuro: Level of Consciousness is awake, alert, obeys commands. Cardiovascular: Patient's skin is warm and dry. Respiratory: Airway is patent Respiratory effort is even, unlabored, Respiratory pattern is regular, symmetrical. GI: Abdomen is round non-distended, Bowel sounds present X 4 quads. Abd is non tender X 4 quads Abd is rigid X 4 quads. Reports lower abdominal pain, upper abdominal pain, nausea, vomiting. : No signs and/or symptoms were reported regarding the genitourinary system. EENT: No signs and/or symptoms were reported regarding the EENT system. Derm: No signs and/or symptoms reported regarding the dermatologic system. Skin is pink, warm \\T\\ dry. normal. Musculoskeletal: No signs and/or symptoms reported regarding the musculoskeletal system. Circulation, motion, and sensation intact. 14:11 Reassessment: Patient appears in no apparent distress at this time. No changes from aj1 previously documented assessment. Patient and/or family updated on plan of care and expected duration. Pain level reassessed. Patient is alert, oriented x 3, equal unlabored respirations, skin warm/dry/pink. 15:21 Reassessment: Patient appears in no apparent distress at this time. No changes from aj1 previously documented assessment. Patient and/or family updated on plan of care and expected duration. Pain level reassessed. Patient is alert, oriented x 3, equal unlabored respirations, skin warm/dry/pink. 16:29 Reassessment: Patient appears in no apparent distress at this time. No changes from aj1 previously documented assessment. Patient and/or family updated on plan of care and expected duration. Pain level reassessed. Patient is alert, oriented x 3, equal unlabored respirations, skin warm/dry/pink. Vital Signs: 13:11 BP 136 / 96; Pulse 66; Resp 16; Temp 98.5; Pulse Ox 100% on R/A; Weight 92.08 kg; iw Height 5 ft. 7 in. (170.18 cm); Pain 10/10; 14:12 BP 127 / 92; Pulse 72; Resp 18; Pulse Ox 100% on R/A; aj1 15:22 BP 116 / 84; Pulse 70; Resp 18; Pulse Ox 100% on R/A; aj1 16:29 BP 116 / 75; Pulse 65; Resp 16; Pulse Ox 100% on R/A; aj1 13:11 Body Mass Index 31.79 (92.08 kg, 170.18 cm) iw ED Course: 12:45 Patient arrived in ED. as 13:07 Lester Hancock PA is PHCP. cp 13:07 Howard Whitmore MD is Attending Physician. cp 13:09 Pam Hodgson, RN is Primary Nurse. iw 13:10 Triage completed. iw 13:12 Arm band placed on. iw 13:20 Elle Orozco, RN is Primary Nurse. aj1 13:23 Patient has correct armband on for positive identification. Placed in gown. Bed in low aj1 position. Call light in reach. 13:23 No provider procedures requiring assistance completed. aj1 14:30 Initial lab(s) drawn, by dc, sent to lab. Inserted saline lock: 20 gauge in right em1 antecubital area, using aseptic technique. Blood collected. 15:08 CT Abd/Pelvis - Without Contrast In Process Unspecified. EDMS 17:35 IV discontinued, intact, bleeding controlled, No redness/swelling at site. Pressure iw dressing applied. Administered Medications: 15:32 Drug: NS 0.9% 1000 ml Route: IV; Rate: 1 bolus; Site: right antecubital; aj1 16:00 Drug: GI Cocktail without - (Maalox Suspension 30 ml, Lidocaine Liquid 2 % 15 aj1 ml) Route: PO; 16:00 Drug: Bentyl 20 mg Route: PO; aj1 Outcome: 15:43 Discharge ordered by . cp 17:35 Discharged to home ambulatory. iw 17:35 Condition: good 17:35 Discharge instructions given to patient, Instructed on discharge instructions, follow up and referral plans. medication usage, Demonstrated understanding of instructions, follow-up care, medications, Prescriptions given X 2. 17:36 Patient left the ED. iw Signatures: Dispatcher [employer] EDMS Elle Orozco RN RN [facility] Teena Joseph as Pam Hodgson RN RN [facility], [place] [address] Lester Hancock PA PA cp
--- NOTE | 2018-10-12 15:44 | EDPHYS ---
Physician Documentation [facility] Name: Tony Mckeon Age: 42 yrs Sex: Male : 1975 Arrival Date: 10/12/2018 Time: 12:45 Bed 16 Private MD: ED Physician Howard Whitmore HPI: 10/12 13:20 This 42 yrs old Black Male presents to ER via Ambulatory with complaints of Abdominal cp Pain. 13:20 The patient presents with abdominal pain mid and upper abdomen. Onset: The cp symptoms/episode began/occurred 1 month(s) ago. Associated signs and symptoms: Pertinent positives: nausea, 1 episode of vomiting today, Pertinent negatives: anorexia, blood in stools, chest pain, constipation, diarrhea, dysuria, fever, shortness of breath, testicular pain, vomiting blood. 13:20 The symptoms radiate to back. cp 13:20 The symptoms are described as achy, intermittent, became worse today. Modifying cp factors: the symptoms are aggravated by pressure. Historical: - Allergies: 13:11 No Known Allergies; iw - Home Meds: 13:11 Norvasc 10 mg Oral tab 1 tab once daily [Active]; iw - PMHx: 13:11 Asthma; Bipolar disorder; Gout; Hypertension; Renal Cancer; iw - PSHx: 13:11 R nephrectomy; iw - Immunization history:: Adult Immunizations up to date. - Social history:: Smoking status: Patient/guardian denies using tobacco. - Ebola Screening: : Patient negative for fever greater than or equal to 101.5 degrees Fahrenheit, and additional compatible Ebola Virus Disease symptoms Patient denies exposure to infectious person Patient denies travel to an Ebola-affected area in the 21 days before illness onset No symptoms or risks identified at this time. ROS: 13:30 Constitutional: Negative for body aches, chills, fever, poor PO intake. cp 13:30 Eyes: Negative for injury, pain, redness, and discharge. cp 13:30 ENT: Negative for drainage from ear(s), ear pain, sore throat, difficulty swallowing, difficulty handling secretions. 13:30 Cardiovascular: Negative for chest pain, edema, palpitations. 13:30 Respiratory: Negative for cough, shortness of breath, wheezing. 13:30 Abdomen/GI: Positive for abdominal pain, nausea, Negative for diarrhea, constipation, anorexia, black/tarry stool, rectal bleeding, active vomiting. 13:30 Back: Negative for pain at rest, pain with movement. 13:30 : Negative for urinary symptoms, flank pain, testicular pain 13:30 Skin: Negative for rash. 13:30 Neuro: Negative for altered mental status, headache, weakness. 13:30 All other systems are negative. Exam: 13:37 Constitutional: The patient appears in no acute distress, alert, awake, cp non-diaphoretic, non-toxic, well developed, well nourished. 13:37 Head/Face: Normocephalic, atraumatic. cp 13:37 Eyes: Periorbital structures: appear normal, Conjunctiva: normal, no exudate, no injection, Sclera: no appreciated abnormality, Lids and lashes: appear normal, bilaterally. 13:37 ENT: External ear(s): are unremarkable, Nose: is normal, Mouth: Lips: moist, Oral mucosa: pink and intact, moist, Posterior pharynx: is normal, airway is patent, no erythema, no exudate. 13:37 Chest/axilla: Inspection: normal, Palpation: is normal, no crepitus, no tenderness. 13:37 Cardiovascular: Rate: normal, Rhythm: regular, Edema: is not appreciated, JVD: is not appreciated. 13:37 Respiratory: the patient does not display signs of respiratory distress, Respirations: normal, no use of accessory muscles, no retractions, no splinting, no tachypnea, labored breathing, is not present, Breath sounds: are clear throughout, no decreased breath sounds, no stridor, no wheezing. 13:37 Abdomen/GI: Inspection: distension, that is mild, Bowel sounds: active, all quadrants, Palpation: soft, in all quadrants, moderate abdominal tenderness, mid upper abdomen, rebound tenderness, is not appreciated, involuntary guarding, is not appreciated. Vital Signs: 13:11 BP 136 / 96; Pulse 66; Resp 16; Temp 98.5; Pulse Ox 100% on R/A; Weight 92.08 kg; iw Height 5 ft. 7 in. (170.18 cm); Pain 10/10; 14:12 BP 127 / 92; Pulse 72; Resp 18; Pulse Ox 100% on R/A; aj1 15:22 BP 116 / 84; Pulse 70; Resp 18; Pulse Ox 100% on R/A; aj1 16:29 BP 116 / 75; Pulse 65; Resp 16; Pulse Ox 100% on R/A; aj1 13:11 Body Mass Index 31.79 (92.08 kg, 170.18 cm) iw MDM: 13:12 Patient medically screened. cp 14:00 Differential diagnosis: bowel obstruction, cholecystitis, Cholelithiasis, gastritis, cp gastroesophageal reflux disease, non-specific abd pain, pancreatitis, Peptic Ulcer Disease, Perf. Duodenal Ulcer, Perf. Gastric Ulcer, Ureterolithiasis, urinary tract infection. 15:42 Data reviewed: vital signs, nurses notes, lab test result(s), radiologic studies, CT cp scan, and as a result, I will discharge patient. 15:42 Counseling: I had a detailed discussion with the patient and/or guardian regarding: the cp historical points, exam findings, and any diagnostic results supporting the discharge/admit diagnosis, lab results, radiology results, the need for outpatient follow up, a family practitioner, to return to the emergency department if symptoms worsen or persist or if there are any questions or concerns that arise at home. Response to treatment: the patient's symptoms have mildly improved after treatment, and as a result, I will discharge patient. Special discussion: Based on the patient's Hx, exam, and Dx evaluation, there is no indication for emergent surgery or inpatient Tx. It is understood by the patient/guardian that if the Sx's persist or worsen they need to return immediately for re-evaluation. 10/12 13:13 Order name: Urine Microscopic Only; Complete Time: 14:56 cp 10/12 13:45 Order name: Basic Metabolic Panel 10/12 13:45 Order name: CBC with Diff; Complete Time: 14:56 cp 10/12 13:45 Order name: Creatinine for Radiology; Complete Time: 14:56 cp 10/12 13:45 Order name: Hepatic Function; Complete Time: 14:56 cp 10/12 13:45 Order name: Lipase; Complete Time: 14:56 cp 10/12 13:13 Order name: Urine Dipstick-Ancillary (obtain specimen); Complete Time: 13:44 cp 10/12 13:45 Order name: IV Saline Lock; Complete Time: 14:15 10/12 13:46 Order name: Urine Dipstick--Ancillary (enter results); Complete Time: 14:56 eb 10/12 13:47 Order name: Basic Metabolic Panel; Complete Time: 14:56 EDMS 10/12 14:59 Order name: CT Abd/Pelvis - Without Contrast; Complete Time: 15:18 cp 10/12 15:19 Interpretation: Report reviewed. 10/12 13:45 Order name: Labs collected and sent; Complete Time: 14:15 10/12 15:41 Order name: PO challenge; Complete Time: 16:28 cp Administered Medications: 15:32 Drug: NS 0.9% 1000 ml Route: IV; Rate: 1 bolus; Site: right antecubital; aj1 16:00 Drug: GI Cocktail without - (Maalox Suspension 30 ml, Lidocaine Liquid 2 % 15 aj1 ml) Route: PO; 16:00 Drug: Bentyl 20 mg Route: PO; aj1 Disposition: 10/12/18 15:43 Discharged to Home. Impression: Unspecified abdominal pain, Chronic kidney disease, unspecified. - Condition is Stable. - Discharge Instructions: Abdominal Pain, Adult, Chronic Kidney Disease, Adult. - Prescriptions for Protonix 40 mg Oral Tablet, Delayed Release (E.C.) - take 1 tablet by ORAL route once daily; 20 tablet. Zofran 4 mg Oral Tablet - take 1 tablet by ORAL route every 12 hours As needed; 20 tablet. - Work release form, Medication Reconciliation Form, Thank You Letter, Antibiotic Education, Prescription Opioid Use form. - Follow up: Private Physician; When: 1 - 2 days; Reason: Recheck today's complaints. - Problem is new. - Symptoms have improved. Addendum: 10/14/2018 04:07 Co-signature as Attending Physician, Howard Whitmore MD. g s Signatures: Dispatcher [employer] [facility] Elle Orozco RN RN aj1 Pam Hodgson RN RN iw Lester Hancock, CAMPOS PA Howard Campos MD MD Corrections: (The following items were deleted from the chart) 10/12 17:36 15:43 10/12/2018 15:43 Discharged to Home. Impression: Unspecified abdominal pain; iw Chronic kidney disease, unspecified. Condition is Stable. Forms are Medication Reconciliation Form, Thank You Letter, Antibiotic Education, Prescription Opioid Use. Follow up: Private Physician; When: 1 - 2 days; Reason: Recheck today's complaints. Problem is new. Symptoms have improved. cp 10/13 15:03 10/12 13:20 The symptoms do not radiate. cp cp
[2018-10-12] MEDS ORDERED: LIDOCAINE VISCOUS 2% SOLN 15 ML UDC ONE (16:21)
[2018-10-12] MEDS ORDERED: MAGNES/ALUMIN/SIMET 30ML UCUP ONE (16:21)
[2018-10-12] MEDS ORDERED: DICYCLOMINE HCL 10 MG CAP ONE (16:23)
== END 2018-10-12 17:36 | disposition home or self-care (01) ==
LOC: ER 12:43
DX: I12.9 Hypertensive chronic kidney disease with stage 1 through stage 4 chronic kidney disease, or unspecified chronic kidney disease (principal); N18.9 Chronic kidney disease, unspecified; Z85.53 Personal history of malignant neoplasm of renal pelvis
CPT/HCPCS: 85025; 80048; 36415; 80076; 83690; 74176; 99284; J7030; 81003; 81015

== ENCOUNTER 2018-10-30 05:58 | Emergency (ER) | payer OTHER ==
--- OUTSIDE RECORDS SUMMARY | 2018-10-30 06:00 | XMS REPORT | Clinical Summary ---
:1975 Author Organization [facility] Address [address] [place] [address] Care Team Providers Name Role Phone Wily Borges MD Primary Care Provider Allergies No Known Allergies Medications Medication Sig Dispensed Refills Start Date End Date Status amLODIPine (NORVASC) Take 20 mg by 0 Active 10 MG tablet mouth daily. divalproex (DEPAKOTE) Take 500 mg by 0 Active 500 MG 24 hr tablet mouth daily. budesonide-formoterol Inhale 2 puffs by 0 Active (SYMBICORT) 160-4.5 mouth via inhaler mcg/actuation inhaler daily. ALBUTEROL SULFATE Inhale by mouth 0 Active (PROAIR HFA INHL) via inhaler as needed. Active Problems Not on file Encounters Date Type Specialty Care Team Description 10/29/2018 Hospital Encounter Radiology Chris Rutherfrod Personal history of MD Noe kidney cancer 10/29/2018 Outside Orders Central Scheduling Chris Rutherford Personal history of MD Noe kidney cancer (Primary Dx) after 10/29/2017 Social History Tobacco Use Types Packs/Day Years Used Date Never Smoker Smokeless Tobacco: Never Used Alcohol Use Drinks/Week oz/Week Comments Yes 5 Cans of beer 3.0 Sex Assigned at Date Recorded Not on file Job Start Date Occupation Industry Not on file Not on file Not on file Travel History Travel Start Travel End No recent travel history available. Last Filed Vital Signs Not on file Plan of Treatment Not on file Results Not on fileafter 10/29/2017 Insurance Payer Benefit Plan / Group Subscriber ID Type Phone Address MEDICARE MEDICARE A B xxxxxxxxxxx Medicare
[2018-10-30 06:47] LABS: Absolute Lymphocytes (CBC) 2.9 K/uL (0.7-4.9); Basophils % 1.3 % (0-1.3); Eosinophils % 9.6 % (0-4.4); Hematocrit 38.8 % (39.6-49.0); Lymphocytes % 37.1 % (15.3-44.8); MPV 7.4 fL (7.6-11.3); Monocytes % 9.2 % (3.3-12.3); RBC Red Blood Cell Count 4.68 M/uL (4.33-5.43)
[2018-10-30] MEDS ORDERED: PROMETHAZINE 25 MG/ML VIAL ONE (07:05)
[2018-10-30 07:16] LABS: ALT/SGPT 25 U/L (12-78); AST/SGOT 16 U/L (15-37); Albumin 3.5 g/dL (3.4-5.0); Alkaline Phosphatase 73 U/L (45-117); BUN Blood Urea Nitrogen 18 mg/dL (7-18); Bicarbonate 26 mmol/L (21-32); Bilirubin Direct < 0.1 mg/dL (0-0.2); Bilirubin Total 0.2 mg/dL (0.2-1.0); Glucose Level 97 mg/dL (74-106); Lipase 172 U/L (73-393); Protein, Total 7.2 g/dL (6.4-8.2); Sodium Level 141 mmol/L (136-145)
--- NOTE | 2018-10-30 07:53 | RAD REPORT ---
EXAM DESCRIPTION: CT - Stone Protocol - 10/30/2018 7:38 am CLINICAL HISTORY: Left-sided flank and abdomen pain COMPARISON: October 12 CT study TECHNIQUE: Axial 5 mm thick images were obtained without oral or IV contrast. The [id number] span s the entirety of the system including uppermost abdomen and lung bases. All CT scans are performed using dose optimization technique as appropriate and may include automated exposure control or mA/KV adjustment according to patient size. FINDINGS: No hydronephrosis is present and no obstructing ureteral calculi. No suspicious renal mass es. Isodense masses and pyelonephritis are not excluded on a stone protocol CT scan. No urinary bladd er suspicious finding. No significant adrenal finding. Patient is status post right nephrectomy for c arcinoma. Imaged portions of the liver, spleen and pancreas show no suspicious findings on non-contrast imaging . No gallbladder or biliary tree abnormality identified. No suspicious bowel findings. Appendix is normal. No hernia, mass or bulky lymphadenopathy noted. No free air, free fluid or inflammatory stranding. No significant bony abnormality. IMPRESSION: Noncontrast CT abdomen and pelvis imaging showing no significant or suspicious finding. Remote right nephrectomy. Isodense masses and pyelonephritis are not excluded on stone protocol technique.
[2018-10-30] MEDS ORDERED: FENTANYL CITR 100 MCG/2 ML ONE (07:56)
--- NOTE | 2018-10-30 08:59 | EDPHYS ---
Physician Documentation [facility] Name: Tony Mckeon Age: 42 yrs Sex: Male : 1975 Arrival Date: 10/30/2018 Time: 05:59 Bed 18 Private MD: ED Physician Reynaldo Gallego HPI: 10/30 07:16 This 42 yrs old Black Male presents to ER via Ambulatory with complaints of L Side jr8 Pain, Nausea. 07:16 The patient presents with abdominal pain in the left upper quadrant, in the left lower jr8 quadrant. Onset: The symptoms/episode began/occurred gradually, 3 week(s) ago, and became worse and became persistent. The symptoms do not radiate. Associated signs and symptoms: Pertinent positives: nausea and vomiting, Pertinent negatives: diarrhea, fever. The symptoms are described as stabbing. Modifying factors: The symptoms are alleviated by nothing, the symptoms are aggravated by nothing. Severity of pain: At its worst the pain was moderate in the emergency department the pain is unchanged. It is unknown whether or not the patient has had similar symptoms in the past. The patient has not recently seen a physician. Historical: - Allergies: 06:14 No Known Allergies; bb - Home Meds: 06:14 Norvasc 10 mg Oral tab 1 tab once daily [Active]; Breo Ellipta 100-25 mcg/dose bb inhalation dsdv 1 puff once daily [Active]; Albuterol Inhl [Active]; albuterol sulfate inhalation Inhl [Active]; - PMHx: 06:14 Asthma; Bipolar disorder; Gout; Hypertension; Renal Cancer; bb - PSHx: 06:14 R nephrectomy; bb - Immunization history:: Adult Immunizations up to date. - Social history:: Smoking status: Patient/guardian denies using tobacco, Patient uses alcohol, occasionally. - Ebola Screening: : No symptoms or risks identified at this time. ROS: 07:16 Eyes: Negative for injury, pain, redness, and discharge, ENT: Negative for injury, jr8 pain, and discharge, Neck: Negative for injury, pain, and swelling, Cardiovascular: Negative for chest pain, palpitations, and edema, Respiratory: Negative for shortness of breath, cough, wheezing, and pleuritic chest pain, Back: Negative for injury and pain, MS/Extremity: Negative for injury and deformity, Skin: Negative for injury, rash, and discoloration, Neuro: Negative for headache, weakness, numbness, tingling, and seizure. 07:16 Abdomen/GI: Positive for abdominal pain, nausea and vomiting, Negative for diarrhea, constipation, abdominal cramps, abdominal distension, anorexia, dysphagia, hematemesis, black/tarry stool, rectal pain, rectal bleeding, bowel incontinence, flatulence. Exam: 07:16 Eyes: Pupils equal round and reactive to light, extra-ocular motions intact. Lids and jr8 lashes normal. Conjunctiva and sclera are non-icteric and not injected. Cornea within normal limits. Periorbital areas with no swelling, redness, or edema. ENT: Nares patent. No nasal discharge, no septal abnormalities noted. Tympanic membranes are normal and external auditory canals are clear. Oropharynx with no redness, swelling, or masses, exudates, or evidence of obstruction, uvula midline. Mucous membranes moist. Neck: Trachea midline, no thyromegaly or masses palpated, and no cervical lymphadenopathy. Supple, full range of motion without nuchal rigidity, or vertebral point tenderness. No Meningismus. Cardiovascular: Regular rate and rhythm with a normal S1 and S2. No gallops, murmurs, or rubs. Normal PMI, no JVD. No pulse deficits. Respiratory: Lungs have equal breath sounds bilaterally, clear to auscultation and percussion. No rales, rhonchi or wheezes noted. No increased work of breathing, no retractions or nasal flaring. Back: No spinal tenderness. No costovertebral tenderness. Full range of motion. Skin: Warm, dry with normal turgor. Normal color with no rashes, no lesions, and no evidence of cellulitis. MS/ Extremity: Pulses equal, no cyanosis. Neurovascular intact. Full, normal range of motion. Neuro: Awake and alert, GCS 15, oriented to person, place, time, and situation. Cranial nerves II-XII grossly intact. Motor strength 5/5 in all extremities. Sensory grossly intact. Cerebellar exam normal. Normal gait. 07:16 Abdomen/GI: Inspection: abdomen appears normal, Bowel sounds: normal, Palpation: soft, in all quadrants, mild abdominal tenderness, in the left upper quadrant and left lower quadrant, mass, is not appreciated, rebound tenderness, is not appreciated, voluntary guarding, is not appreciated, involuntary guarding, is not appreciated, no appreciated organomegaly, Indicators: McBurney's point is not tender, Prakash's sign is negative, Rovsing's sign is negative, Liver: tenderness, is not appreciated. Vital Signs: 06:14 BP 132 / 91; Pulse 57; Resp 16 S; Temp 99(O); Pulse Ox 99% on R/A; Weight 87.54 kg (R); bb Height 5 ft. 7 in. (170.18 cm) (R); Pain 10/10; 07:00 BP 106 / 68; Pulse 55; Resp 16; Pulse Ox 100% ; bp 08:14 BP 126 / 85; Pulse 48; Resp 16; Pulse Ox 97% ; bp 09:08 BP 120 / 78; Pulse 48; Resp 16; Temp 98; Pulse Ox 99% ; bp 06:14 Body Mass Index 30.23 (87.54 kg, 170.18 cm) bb MDM: 06:06 Patient medically screened. [facility] 08:56 Data reviewed: vital signs, nurses notes, old medical records, lab test result(s), jr8 radiologic studies, CT scan. Data interpreted: Pulse oximetry: on room air is 97 %. Interpretation: normal. Counseling: I had a detailed discussion with the patient and/or guardian regarding: the historical points, exam findings, and any diagnostic results supporting the discharge/admit diagnosis, lab results, radiology results, the need for outpatient follow up, a family practitioner, a negative stripper, to return to the emergency department if symptoms worsen or persist or if there are any questions or concerns that arise at home. 08:57 Differential diagnosis: bowel obstruction, diverticulitis, non-specific abd pain, jr8 Pyelonephritis, Testicular Torsion, Ureterolithiasis, urinary tract infection. ED course: Patient doing better. No acute findings on CT. Reviewed blood work from the other day and US along with what we did today. No acute findings. Hemodynamically stable. Recommended f/u with GI and FM at this point. If worse to come back for further evaluation. Patient good with plan . 10/30 06:31 Order name: Basic Metabolic Panel 8 10/30 06:31 Order name: CBC with Diff 8 10/30 06:31 Order name: Creatinine for Radiology 8 10/30 06:31 Order name: Hepatic Function; Complete Time: 07:20 [facility] 10/30 06:31 Order name: Lipase; Complete Time: 07:20 jr8 10/30 06:31 Order name: Basic Metabolic Panel; Complete Time: 07:20 EDMS 10/30 06:31 Order name: IV Saline Lock; Complete Time: 06:40 jr8 10/30 06:31 Order name: Labs collected and sent; Complete Time: 06:40 jr8 10/30 06:31 Order name: CBC with Automated Diff; Complete Time: 06:58 EDMS 10/30 06:31 Order name: Creatinine (Radiology Only); Complete Time: 07:20 EDMS 10/30 07:20 Order name: CT Stone Protocol; Complete Time: 08:40 jr8 Administered Medications: 06:54 Drug: Phenergan 12.5 mg Route: IVP; Site: right antecubital; cc3 07:41 Follow up: Response: Nausea is decreased bp 07:50 Drug: fentaNYL (PF) 50 mcg Route: IVP; Site: right antecubital; bp 08:15 Follow up: Response: Pain is decreased bp Disposition: 22:14 Co-signature as Attending Physician, Reynaldo Gallego MD Available for consultation at ps1 all times. . Disposition: 10/30/18 08:59 Discharged to Home. Impression: Abdominal and pelvic pain. - Condition is Stable. - Discharge Instructions: Abdominal Pain, Adult. - Prescriptions for Zofran 4 mg Oral Tablet - take 1 tablet by ORAL route every 12 hours As needed; 20 tablet. Tramadol 50 mg Oral Tablet - take 1 tablet by ORAL route every 8 hours as needed; 12 tablet. - Medication Reconciliation Form, Thank You Letter, Antibiotic Education, Prescription Opioid Use, Work release form form. - Follow up: Jose Lou MD; When: 5 - 6 days; Reason: Recheck today's complaints, Continuance of care, Re-evaluation by your physician. - Problem is new. - Symptoms have improved. Signatures: Dispatcher [employer] Yakelin Redd, RN RN Jairo Modi PA PA jr8 Onofre Martinez RN RN Reynaldo Beltran MD MD ps1 Rosina Collins cc3 Corrections: (The following items were deleted from the chart) 09:09 08:59 10/30/2018 08:59 Discharged to Home. Impression: Abdominal and pelvic pain. bp Condition is Stable. Forms are Medication Reconciliation Form, Thank You Letter, Antibiotic Education, Prescription Opioid Use. Follow up: Jose Lou; When: 5 - 6 days; Reason: Recheck today's complaints, Continuance of care, Re-evaluation by your physician. Problem is new. Symptoms have improved. jr8
--- NOTE | 2018-10-30 08:59 | ER ---
Nurse's Notes [facility] Name: Tony Mcekon Age: 42 yrs Sex: Male : 1975 Arrival Date: 10/30/2018 Time: 05:59 Bed 18 Private MD: Diagnosis: Abdominal and pelvic pain Presentation: 10/30 06:10 Presenting complaint: Patient states: he has been having left sided pain x 1 month the bb pain has gotten constant over the last two weeks and he vomited x 2 this morning. Pt had US and lab work done here yesterday but has not seen the results yet. Pt has hx of kidney cancer with right nephrectomy. Transition of care: patient was not received from another setting of care. Onset of symptoms was September 2018. Risk Assessment: Do you want to hurt yourself or someone else? Patient reports no desire to harm self or others. Initial Sepsis Screen: Does the patient meet any 2 criteria? No. Patient's initial sepsis screen is negative. Does the patient have a suspected source of infection? No. Patient's initial sepsis screen is negative. Care prior to arrival: None. 06:10 Method Of Arrival: Ambulatory bb 06:10 Acuity: KRISTEN 3 bb Triage Assessment: 06:15 General: Appears in no apparent distress. uncomfortable, Behavior is calm, cooperative, cc3 appropriate for age. Pain: Complains of pain in left side abdomen. EENT:. EENT: No signs and/or symptoms were reported regarding the EENT system. Neuro: Level of Consciousness is awake, alert, obeys commands, Oriented to person, place, time, situation, Appropriate for age. Cardiovascular: Denies chest pain, Capillary refill < 3 seconds Patient's skin is warm and dry. Respiratory: Airway is patent Respiratory effort is even, unlabored, Respiratory pattern is regular, symmetrical. GI: Abdomen is round Reports left sided pain since a month now. : No signs and/or symptoms were reported regarding the genitourinary system. Derm: Skin is intact, is healthy with good turgor, Skin is normal, black. Musculoskeletal: Circulation, motion, and sensation intact. Range of motion: intact in all extremities. Historical: - Allergies: 06:14 No Known Allergies; bb - Home Meds: 06:14 Norvasc 10 mg Oral tab 1 tab once daily [Active]; Breo Ellipta 100-25 mcg/dose bb inhalation dsdv 1 puff once daily [Active]; Albuterol Inhl [Active]; albuterol sulfate inhalation Inhl [Active]; - PMHx: 06:14 Asthma; Bipolar disorder; Gout; Hypertension; Renal Cancer; bb - PSHx: 06:14 R nephrectomy; bb - Immunization history:: Adult Immunizations up to date. - Social history:: Smoking status: Patient/guardian denies using tobacco, Patient uses alcohol, occasionally. - Ebola Screening: : No symptoms or risks identified at this time. Screenin:15 Abuse screen: Denies threats or abuse. Denies injuries from another. Nutritional cc3 screening: No deficits noted. Tuberculosis screening: No symptoms or risk factors identified. Fall Risk Ambulatory Aid- None/Bed Rest/Nurse Assist (0 pts). Gait- Normal/Bed Rest/Wheelchair (0 pts) Mental Status- Oriented to own ability (0 pts). Assessment: 06:15 General: see triage assessment. cc3 07:00 Reassessment: RECD REPORT FROM ROSINA MARTINEZ. 42YO BM P/W L FLANK PAIN. ALL CURRENT bp ORDERS COMPLTED, RESULTS PENDING. 07:00 GI: Abdomen is non-distended, Abd is soft X 4 quads. bp 07:42 Reassessment: PT RETURNED FROM CT. bp 09:08 Reassessment: PT D/C HOME AMBULATORY WITH FAMILY, DX WITH ABDOMINAL PAIN. bp Vital Signs: 06:14 BP 132 / 91; Pulse 57; Resp 16 S; Temp 99(O); Pulse Ox 99% on R/A; Weight 87.54 kg (R); bb Height 5 ft. 7 in. (170.18 cm) (R); Pain 10/10; 07:00 BP 106 / 68; Pulse 55; Resp 16; Pulse Ox 100% ; bp 08:14 BP 126 / 85; Pulse 48; Resp 16; Pulse Ox 97% ; bp 09:08 BP 120 / 78; Pulse 48; Resp 16; Temp 98; Pulse Ox 99% ; bp 06:14 Body Mass Index 30.23 (87.54 kg, 170.18 cm) bb ED Course: 05:59 Patient arrived in ED. ds1 06:05 Jairo Bradley PA is PHCP. jr8 06:05 Reynaldo Gallego MD is Attending Physician. jr8 06:12 Triage completed. bb 06:14 Arm band placed on Patient placed in an exam room, on a stretcher, on pulse oximetry. bb 06:15 Patient has correct armband on for positive identification. Bed in low position. Call cc3 light in reach. Side rails up X 1. Pulse ox on. NIBP on. 06:35 Inserted saline lock: 20 gauge in right antecubital area, using aseptic technique. cc3 Blood collected. 07:00 Report given to MICHELLE Adhikari. cc3 07:10 Onofre Martienz, RN is Primary Nurse. bp 07:39 CT Stone Protocol In Process Unspecified. EDMS 08:58 Jose Lou MD is Referral Physician. jr8 09:08 No provider procedures requiring assistance completed. IV discontinued, intact, bp bleeding controlled, No redness/swelling at site. Pressure dressing applied. Administered Medications: 06:54 Drug: Phenergan 12.5 mg Route: IVP; Site: right antecubital; cc3 07:41 Follow up: Response: Nausea is decreased bp 07:50 Drug: fentaNYL (PF) 50 mcg Route: IVP; Site: right antecubital; bp 08:15 Follow up: Response: Pain is decreased bp Outcome: 08:59 Discharge ordered by . jr8 09:09 Discharged to home ambulatory, with family. bp 09:09 Condition: stable 09:09 Discharge instructions given to patient, Instructed on discharge instructions, follow up and referral plans. medication usage, Demonstrated understanding of instructions, follow-up care, medications, Prescriptions given X 2. 09:09 Patient left the ED. bp Signatures: Dispatcher [employer] [facility] KrauseAngela marie ds1 Yakelin Braun, RN RN Jairo Modi PA PA jr8 Onofre Martinez, RN RN Rosina Hackett cc3
== END 2018-10-30 09:09 | disposition home or self-care (01) ==
LOC: ER 05:58
DX: R10.12 Left upper quadrant pain (principal); R10.2 Pelvic and perineal pain; R11.2 Nausea with vomiting, unspecified; J45.909 Unspecified asthma, uncomplicated; M10.9 Gout, unspecified; I10 Essential (primary) hypertension; C64.9 Malignant neoplasm of unspecified kidney, except renal pelvis; F31.9 Bipolar disorder, unspecified
CPT/HCPCS: 85025; 80048; 36415; 80076; 83690; 76377; 74176; 96375; 96374; 99284; J2550; J3010

== ENCOUNTER 2018-11-22 06:05 | Emergency (ER) | payer OTHER ==
--- OUTSIDE RECORDS SUMMARY | 2018-11-22 06:07 | XMS REPORT ---
:1975 [facility] Address [address] [place] [address] [address] [place] [address] Care Team Providers Name Role Phone Unavailable Unavailable Unavailable Problems This patient has no known problems. Allergies, Adverse Reactions, Alerts This patient has no known allergies or adverse reactions. Medications This patient has no known medications. Results Test Description Test Time Test Comments Text Results Atomic Results Result Comments RAD, CHEST, 2 2018-10-30 07:49:00 Reason for FINAL REPORT PATIENT VIEWS Exam:->PERSONAL HISTORY ID: [id number] EXAM: OF KIDNEY CANCER RAD, CHEST, 2 VIEWSDATE: 10/29/2018 5:39 PM INDICATION: PERSONAL HISTORY OF KIDNEY CANCER COMPARISON: None FINDINGS:Lines and tubes: None Heart size normal. No focal pulmonary opacity, pleural effusion or pneumothorax. Upper abdomen unremarkable. No acute bony abnormality. IMPRESSION:No evidence for acute disease. Signed: Star Cleary Verified Date/Time: 10/30/2018 07:49:29
--- OUTSIDE RECORDS SUMMARY | 2018-11-22 06:07 | XMS REPORT | Clinical Summary ---
:1975 Author Organization [facility] Address [address] [place] [address] Care Team Providers Name Role Phone Wily [...] Team Description 10/29/2018 Hospital Encounter Radiology Chris Rutherford Personal history of MD Noe kidney cancer 10/29/2018 Outside Orders Central Scheduling Chris Rutherford Personal history of MD Noe kidney cancer (Primary Dx) after 11/21/2017 Social History Tobacco Use Types Packs/Day Years [...] file Plan of Treatment Not on file Procedures Procedure Name Priority Date/Time Associated Diagnosis Comments XR CHEST 2 VIEWS Routine 10/29/2018 5:39 PM Personal history of Results for this CDT kidney cancer procedure are in the results section. after 11/21/2017 Results XR chest 2 views (10/29/2018 5:39 PM CDT) Specimen Narrative Performed At FINAL REPORT GE RIS EXAM:RAD, CHEST, 2 VIEWS DATE: 10/29/2018 5:39 PM INDICATION: PERSONAL HISTORY OF KIDNEY CANCER COMPARISON: None FINDINGS: Lines and tubes: None Heart size normal. No focal pulmonary opacity, pleural effusion or pneumothorax. Upper abdomen unremarkable. No acute bony abnormality. IMPRESSION: No evidence for acute disease. Signed: Sapna Cleary MD Report Verified Date/Time:10/30/2018 07:49:29 Procedure Note Interface, External Ris In - 10/30/2018 7:51 AM CDT FINAL REPORT EXAM: RAD, CHEST, 2 VIEWS DATE: 10/29/2018 5:39 PM INDICATION: PERSONAL HISTORY OF KIDNEY CANCER COMPARISON: None FINDINGS: Lines and tubes: None Heart size normal. No focal pulmonary opacity, pleural effusion or pneumothorax. Upper abdomen unremarkable. No acute bony abnormality. IMPRESSION: No evidence for acute disease. Signed: Sapna Cleary MD Report Verified Date/Time: 10/30/2018 07:49:29 Performing Organization Address City/State/Zipcode Phone Number [facility] after 11/21/2017 Insurance Payer Benefit Plan / Subscriber ID Type Phone Address Group MEDICARE MEDICARE A B xxxxxxxxxxx Medicare AET[employer] - MEDICARE AETNA MEDICARE xxxxxxxx [phone] [address] [place] [place] [address] (Home) [address] [place] [address]
[2018-11-22] MEDS ORDERED: MAGNE/ALUM HYDROXD 30 ML UCUP ONE (06:36)
[2018-11-22] MEDS ORDERED: LIDOCAINE VISCOUS 2% SOLN 15 ML UDC ONE (06:37)
[2018-11-22] MEDS ORDERED: DICYCLOMINE HCL 10 MG CAP ONE (06:37)
[2018-11-22 06:43] LABS: Absolute Lymphocytes (CBC) 2.3 K/uL (0.7-4.9); Basophils % 1.3 % (0-1.3); Hematocrit 41.8 % (39.6-49.0); Lymphocytes % 26.6 % (15.3-44.8); MPV 7.1 fL (7.6-11.3); RBC Red Blood Cell Count 4.98 M/uL (4.33-5.43)
[2018-11-22 07:01] LABS: Albumin 3.9 g/dL (3.4-5.0); Bilirubin Direct 0.1 mg/dL (0-0.2); Bilirubin Total 0.6 mg/dL (0.2-1.0); Potassium 3.9 mmol/L (3.5-5.1); Protein, Total 8.1 g/dL (6.4-8.2)
[2018-11-22] MEDS ORDERED: MORPHINE 4 MG/ML SYR ONE (07:19)
--- NOTE | 2018-11-22 10:24 | RAD REPORT ---
EXAM DESCRIPTION: CT - Abdomen Pelvis Wo Contrast - 11/22/2018 10:07 am CLINICAL HISTORY: Abdominal pain, bloody diarrhea, history of nephrectomy COMPARISON: CT study October 30 TECHNIQUE: Axial [address] imaging of the abdomen and pelvis was performed without IV contrast. No IV contrast was given because of allergy, abnormal renal function, patient refusal or physician re quest. Oral contrast was administered. All CT scans are performed using dose optimization technique as appropriate and may include automated exposure control or mA/KV adjustment according to patient size. FINDINGS: No suspicious findings in the lung bases. The liver, spleen and pancreas show no suspicious findings on non-contrast imaging. Gallbladder and b iliary tree are also without suspicious finding. No hydronephrosis of the left kidney. No obstructing or nonobstructing calculus. No perinephric stran ding. Patient is status post right nephrectomy. No abnormality in the right renal bed. No significan t adrenal finding. Isodense renal masses and pyelonephritis cannot be excluded in the absence of IV c ontrast. The urinary bladder is without significant finding. Prostate gland and seminal vesicles norm al range. No gastric dilatation or wall thickening. No small bowel abnormality. Oral contrast is migrated to th e colon and the distal small bowel. Colon is not fully distended. No colon wall thickening or edema. No stranding adjacent to the colon. A mass of the colon is not identifiable on CT. No free air, free fluid or inflammatory stranding. No hernia, mass or bulky lymphadenopathy. No suspicious bony findings. IMPRESSION: Non-contrast enhanced CT abdomen and pelvis imaging show no significant or suspicious fi nding. Nonacute findings detailed in the body of the report. No findings to explain the abdominal pain and bloody diarrhea symptoms. Full assessment is limited is the absence of IV contrast.
--- NOTE | 2018-11-22 10:40 | ER ---
Nurse's Notes [facility] Name: Tony Mckeon Age: 42 yrs Sex: Male : 1975 Arrival Date: 11/22/2018 Time: 06:06 Bed 19 Private MD: Wily Borges B Diagnosis: Diarrhea, unspecified;Unspecified abdominal pain Presentation: 11/22 06:05 Presenting complaint: Patient states: "Generalized abdominal pain and nausea since last cc3 month and yesterday I started to have diarrhea; today morning I passed watery stools 6 times. I have a colonoscopy appointment with Dr. Lou on December 06". Transition of care: patient was not received from another setting of care. Onset of symptoms was November 21, 2018. Risk Assessment: Do you want to hurt yourself or someone else? Patient reports no desire to harm self or others. Initial Sepsis Screen: Does the patient meet any 2 criteria? No. Patient's initial sepsis screen is negative. Does the patient have a suspected source of infection? Yes: Acute abdominal pain. Care prior to arrival: None. 06:05 Method Of Arrival: Ambulatory cc3 06:05 Acuity: KRISTEN 3 cc3 Triage Assessment: 06:05 General: Appears in no apparent distress. uncomfortable, Behavior is calm, cooperative, cc3 appropriate for age. Pain: Complains of pain in left upper quadrant and right upper quadrant Pain currently is 10 out of 10 on a pain scale. Quality of pain is described as aching. EENT: No signs and/or symptoms were reported regarding the EENT system. Neuro: Level of Consciousness is awake, alert, obeys commands, Oriented to person, place, time, situation, Appropriate for age. Cardiovascular: Denies chest pain, Capillary refill < 3 seconds Patient's skin is warm and dry. Respiratory: Airway is patent Respiratory effort is even, unlabored, Respiratory pattern is regular, symmetrical. GI: Abdomen is round. : No signs and/or symptoms were reported regarding the genitourinary system. Derm: Skin is intact, is healthy with good turgor, Skin is normal, black. Musculoskeletal: Circulation, motion, and sensation intact. Range of motion: intact in all extremities. Historical: - Allergies: 06:05 No Known Allergies; cc3 - Home Meds: 06:05 Albuterol Inhl [Active]; albuterol sulfate inhalation Inhl [Active]; Breo Ellipta cc3 100-25 mcg/dose inhalation dsdv 1 puff once daily [Active]; Norvasc 10 mg Oral tab 1 tab once daily [Active]; Proventil Inhl [Active]; - PMHx: 06:05 Asthma; Bipolar disorder; Gout; Hypertension; Renal Cancer; cc3 - PSHx: 06:05 hydrocele removal(2015); right kidney removal(2012); cc3 - Immunization history:: Adult Immunizations up to date. - Social history:: Smoking status: Patient/guardian denies using tobacco, never smoked. - Ebola Screening: : No symptoms or risks identified at this time. Screenin:42 Abuse screen: Denies threats or abuse. Nutritional screening: No deficits noted. ea Tuberculosis screening: No symptoms or risk factors identified. Fall Risk IV access (20 points). Assessment: 06:05 General: see triage assessment. cc3 07:00 Reassessment: RECD REPORT FROM ROSINA MARTINEZ. 42YO BM P/W ABD PAIN >1 MONTH. ALL CURRENT bp ORDERS COMPLETED. 07:00 GI: Bowel sounds present X 4 quads. Abd is soft X 4 quads. bp 08:04 Reassessment: PT DRINKING PO CONTRAST. bp 08:23 Reassessment: PT FINISHED PO CONTRAST, CT NOTIFIED. bp 10:01 Reassessment: PT TO CT WITH SEAT PACK INSPECTOR. bp 10:12 Reassessment: PT RETURNED FROM CT. bp 11:03 Reassessment: PT D/C HOME AMBULATORY, DX WITH ABDOMINAL PAIN AND DIARRHEA. bp Vital Signs: 06:05 BP 119 / 83; Pulse 65; Resp 19 S; Temp 98(O); Pulse Ox 96% on R/A; Weight 88.9 kg (R); cc3 Height 5 ft. 6 in. (167.64 cm) (R); Pain 10/10; 07:00 BP 114 / 80; Pulse 56; Resp 16; Pulse Ox 99% ; bp 08:00 BP 117 / 80; Pulse 44; Resp 14; Pulse Ox 100% ; bp 09:00 BP 105 / 73; Pulse 50; Resp 16; Pulse Ox 98% ; bp 10:00 BP 110 / 79; Pulse 50; Resp 16; Pulse Ox 99% ; bp 11:03 BP 110 / 79; Pulse 46; Resp 16; Temp 98; Pulse Ox 98% ; bp 06:05 Body Mass Index 31.63 (88.90 kg, 167.64 cm) cc3 ED Course: 06:06 Patient arrived in ED. am2 06:07 Wily Borges MD is Private Physician. am2 06:09 [facility] 06:09 Raymond Loja MD is Attending Physician. [facility] 06:30 Inserted saline lock: 20 gauge in right antecubital area, using aseptic technique. ea Blood collected. 06:38 Triage completed. cc3 06:43 Patient has correct armband on for positive identification. Bed in low position. Call ea light in reach. Side rails up X2. 06:43 Arm band placed on right wrist. Patient placed in an exam room, on a stretcher, on ea pulse oximetry. 07:02 Onofre Martinez, MICHELLE is Primary Nurse. bp 10:26 Abdomen In Process Unspecified. EDMS 10:38 Wily Borges MD is Referral Physician. [facility] 11:03 No provider procedures requiring assistance completed. IV discontinued, intact, bp bleeding controlled, No redness/swelling at site. Pressure dressing applied. Administered Medications: 06:40 Drug: GI Cocktail without - (Maalox Suspension 30 ml, Lidocaine Liquid 2 % 15 ea ml) Route: PO; 07:04 Follow up: Response: No adverse reaction bp 06:41 Drug: Bentyl 20 mg Route: PO; ea 07:04 Follow up: Response: No adverse reaction bp 07:22 Drug: morphine 4 mg Route: IVP; Site: right antecubital; bp 10:04 Follow up: Response: Pain is decreased bp Outcome: 10:38 Discharge ordered by . [facility] 11:04 Discharged to home ambulatory, with family. bp 11:04 Condition: stable 11:04 Discharge instructions given to patient, Instructed on discharge instructions, follow up and referral plans. medication usage, Demonstrated understanding of instructions, follow-up care, medications, Prescriptions given X 3. 11:05 Patient left the ED. bp Signatures: Dispatcher [employer] EDMS Zackary Lincoln PA PA Lea Valdez am2 Bessie Sumner RN Onofre Ribera ea, RN RN bp Cordel, Rosina cc3
--- NOTE | 2018-11-22 10:41 | EDPHYS ---
Physician Documentation [facility] Name: Tony Mckeon Age: 42 yrs Sex: Male : 1975 Arrival Date: 11/22/2018 Time: 06:06 Bed 19 Private MD: Wily Borges B ED Physician Raymond Loja HPI: 11/22 06:29 This 42 yrs old Black Male presents to ER via Unassigned with complaints of Abdominal jmm Pain. 06:29 The patient presents with abdominal pain in the epigastric area. Onset: The jmm symptoms/episode began/occurred gradually, 1 month(s) ago. The symptoms do not radiate. Associated signs and symptoms: Pertinent positives: diarrhea. The symptoms are described as achy. This is a 42 year old male with a history of ckd that presents to the ED with complaints of abdominal pain which has been ongoing for the past month. Patient states he developed diarrhea recently. Patient states pain is more well localized to the epigastric region. Denies recent abx use, denies recent travel. . Historical: - Allergies: 06:05 No Known Allergies; cc3 - Home Meds: 06:05 Albuterol Inhl [Active]; albuterol sulfate inhalation Inhl [Active]; Breo Ellipta cc3 100-25 mcg/dose inhalation dsdv 1 puff once daily [Active]; Norvasc 10 mg Oral tab 1 tab once daily [Active]; Proventil Inhl [Active]; - PMHx: 06:05 Asthma; Bipolar disorder; Gout; Hypertension; Renal Cancer; cc3 - PSHx: 06:05 hydrocele removal(2015); right kidney removal(2012); cc3 - Immunization history:: Adult Immunizations up to date. - Social history:: Smoking status: Patient/guardian denies using tobacco, never smoked. - Ebola Screening: : No symptoms or risks identified at this time. ROS: 06:29 Constitutional: Negative for fever, chills, and weight loss, Cardiovascular: Negative jmm for chest pain, palpitations, and edema, Respiratory: Negative for shortness of breath, cough, wheezing, and pleuritic chest pain. 06:29 Abdomen/GI: Positive for abdominal pain. 06:29 All other systems are negative. Exam: 06:29 Head/Face: atraumatic. Eyes: EOMI, no conjunctival erythema appreciated ENT: Moist jm Mucus Membranes Neck: Trachea midline, Supple Chest/axilla: Normal chest wall appearance and motion. Cardiovascular: Regular rate and rhythm. No edema appreciated Respiratory: Normal respirations, no respiratory distress appreciated 06:29 Constitutional: The patient appears in no acute distress, alert, awake. 06:29 Abdomen/GI: Inspection: abdomen appears normal, Bowel sounds: normal, Palpation: soft, mild abdominal tenderness, in the right upper quadrant and left upper quadrant. 06:29 Musculoskeletal/extremity: ROM: intact in all extremities. 06:29 Skin: Appearance: Color: normal in color. 06:29 Neuro: Orientation: is normal, Mentation: is normal, Memory: is normal. 06:29 Psych: Behavior/mood is pleasant, cooperative. Vital Signs: 06:05 BP 119 / 83; Pulse 65; Resp 19 S; Temp 98(O); Pulse Ox 96% on R/A; Weight 88.9 kg (R); cc3 Height 5 ft. 6 in. (167.64 cm) (R); Pain 10/10; 07:00 BP 114 / 80; Pulse 56; Resp 16; Pulse Ox 99% ; bp 08:00 BP 117 / 80; Pulse 44; Resp 14; Pulse Ox 100% ; bp 09:00 BP 105 / 73; Pulse 50; Resp 16; Pulse Ox 98% ; bp 10:00 BP 110 / 79; Pulse 50; Resp 16; Pulse Ox 99% ; bp 11:03 BP 110 / 79; Pulse 46; Resp 16; Temp 98; Pulse Ox 98% ; bp 06:05 Body Mass Index 31.63 (88.90 kg, 167.64 cm) cc3 MDM: 06:21 Patient medically screened. [facility] 10:36 Data reviewed: vital signs, nurses notes. Counseling: I had a detailed discussion with [facility] the patient and/or guardian regarding: the historical points, exam findings, and any diagnostic results supporting the discharge/admit diagnosis, lab results, radiology results, the need for outpatient follow up, to return to the emergency department if symptoms worsen or persist or if there are any questions or concerns that arise at home. ED course: Patient is alert and non toxic in appearance in the ED. Patient advised to follow up with pcp or GI for reevaluation. patient given strict return precautions. patient understood and agrees with the plan of care. . 11/22 06:26 Order name: Basic Metabolic Panel [facility] 11/22 06:26 Order name: CBC with Diff [facility] 11/22 06:26 Order name: Creatinine for Radiology [facility] 11/22 06:26 Order name: Hepatic Function; Complete Time: 07:10 jmm 11/22 06:26 Order name: Lipase; Complete Time: 07:10 [facility] 11/22 06:27 Order name: Basic Metabolic Panel; Complete Time: 07:10 EDMS 11/22 06:26 Order name: IV Saline Lock; Complete Time: 06:41 [facility] 11/22 06:27 Order name: CBC with Automated Diff; Complete Time: 06:47 EDMS 11/22 06:27 Order name: Creatinine (Radiology Only); Complete Time: 07:00 EDMS 11/22 08:03 Order name: Abdomen ; Complete Time: 10:34 EDMS 11/22 06:26 Order name: Labs collected and sent; Complete Time: 06:41 jmm Administered Medications: 06:40 Drug: GI Cocktail without - (Maalox Suspension 30 ml, Lidocaine Liquid 2 % 15 ea ml) Route: PO; 07:04 Follow up: Response: No adverse reaction bp 06:41 Drug: Bentyl 20 mg Route: PO; ea 07:04 Follow up: Response: No adverse reaction bp 07:22 Drug: morphine 4 mg Route: IVP; Site: right antecubital; bp 10:04 Follow up: Response: Pain is decreased bp Disposition: 11/22/18 10:38 Discharged to Home. Impression: Diarrhea, unspecified, Unspecified abdominal pain. - Condition is Stable. - Discharge Instructions: Abdominal Pain, Adult, Food Choices to Help Relieve Diarrhea, Adult. - Prescriptions for Flagyl 500 mg Oral Tablet - take 1 tablet by ORAL route every 8 hours for 7 days; 21 tablet. Bactrim DS 800- 160 mg Oral Tablet - take 1 tablet by ORAL route every 12 hours for 7 days; 14 tablet. Pepcid 20 mg Oral Tablet - take 1 tablet by ORAL route every 12 hours for 10 days; 20 tablet. - Medication Reconciliation Form, Thank You Letter, Antibiotic Education, Prescription Opioid Use, Work release form form. - Follow up: Wily Borges MD; When: 2 - 3 days; Reason: Recheck today's complaints, Continuance of care, Re-evaluation by your physician. Addendum: 11/26/2018 07:00 Co-signature as Attending Physician, Raymond Loja MD. r n Signatures: Dispatcher [employer] [facility] Zackary Lincoln PA PA jmm Nieto, Roman, MD MD rn Bessie Sumner, RN RN Onofre Davis, RN RN Rosina Hackett cc3 Corrections: (The following items were deleted from the chart) 11/22 08:03 07:42 Abdomen Pelvis W/Wo Con+CT.RAD.BRZ ordered. [facility] EDND 11:05 10:38 11/22/2018 10:38 Discharged to Home. Impression: Diarrhea, unspecified; bp Unspecified abdominal pain. Condition is Stable. Forms are Medication Reconciliation Form, Thank You Letter, Antibiotic Education, Prescription Opioid Use. Follow up: Wily Borges; When: 2 - 3 days; Reason: Recheck today's complaints, Continuance of care, Re-evaluation by your physician. skip
== END 2018-11-22 11:05 | disposition home or self-care (01) ==
LOC: ER 06:05
DX: R19.7 Diarrhea, unspecified (principal); I10 Essential (primary) hypertension; F31.9 Bipolar disorder, unspecified; J45.909 Unspecified asthma, uncomplicated; Z85.53 Personal history of malignant neoplasm of renal pelvis
CPT/HCPCS: 36415; 74176; 80048; 80076; 83690; 85025; 96374; 99284

== ENCOUNTER 2020-03-26 21:36 | Emergency (ER) | payer OTHER, SELFPAY ==
--- OUTSIDE RECORDS SUMMARY | 2020-03-26 21:38 | XMS REPORT | Continuity of Care Document ---
:1975 Author Organization [facility] t Address [address] [place] [address] Care Team Providers Name Role Phone Yanelis Borges MD Primary Care Physician Problems This patient has no known problems. Allergies, Adverse Reactions, Alerts This patient has no known allergies or adverse reactions. Social History Social Habit Start Date Stop Date Quantity Comments Source Sex Assigned At [facility] Tobacco use and 2015-01-02 2015-01-02 Never used [facility] - exposure 00:00:00 00:00:00 [facility] Alcohol intake 2015-01-02 2015-01-02 Current drinker [facility] [employer] [facility] - 00:00:00 00:00:00 of [facility] (finding) Smoking Status Start Date Stop Date Source Never smoker [facility] Medications Ordered Filled Start Stop Current Ordering Indication Dosage Frequency Signature Comments Components Source Medication Medication Date Date Medication? Clinician (SIG) Name Name amLODIPine Yes 20mg QD Take [address] (NORVASC) 9-18 by [facility] - 10 MG 13:51: daily. Medical tablet 37 [place] divalproex Yes 500mg QD Take [address] (DEPAKOTE) 9-18 mg by [facility] - 500 MG 24 13:51: mouth Medical hr tablet 37 daily. Center budesonide- Yes 2{puff} QD Inhale [address] formoterol 9-18 puffs by [facility] - (SYMBICORT) 13:51: mouth via M edical 160-4.5 37 inhaler Center mcg/actuati daily. on inhaler ALBUTEROL 2015-0 Yes Inhale by [facility] SUL[facility] 9-18 mouth via [facility] - (PROAIR HFA 13:51: inhaler as Medical INHL) 37 needed. Center Procedures This patient has no known procedures. Plan of Care Planned Activity Planned Date Details Comments Source Future Scheduled 2019-12-[address] [facility] - Test 00:00:00 (#1) [code = [facility] INFLUENZA VACCINE (#1)] Future Scheduled 2019-10-[address] [facility] - Test 00:00:00 WELLNESS (YEAR 2 or Medical Center FIRST YEAR if no IPPE) [code = MEDICARE ANNUAL WELLNESS (YEAR 2 or FIRST YEAR if no IPPE)] Future Scheduled 2011-11-[address] [facility] - Test 00:00:00 (procedure) [code = [facility] [id number]] Results Test Description Test Time Test Comments Results Result [facility] e Comments RAD, CHEST, 2 2018-10-30 Reason for FINAL REPORT PATIENT VIEWS 07:49:00 Exam:->PERSONAL ID: [id number] EXAM: HISTORY OF RAD, CHEST, 2 KIDNEY CANCER VIEWSDATE: 10/29/2018 5:39 PM INDICATION: PERSONAL HISTORY OF KIDNEY CANCER COMPARISON: None FINDINGS:Lines and tubes: None Heart size normal. No focal pulmonary opacity, pleural effusion or pneumothorax. Upper abdomen unremarkable. No acute bony abnormality. IMPRESSION:No evidence for acute disease. Signed: Sapna Cleary MDReport Verified Date/Time: 10/30/2018 07:49:29
--- OUTSIDE RECORDS SUMMARY | 2020-03-26 21:38 | XMS REPORT | Clinical Summary ---
:1975 Author Organization [facility] Address [address] [place] [address] Care Team Providers Name Role Phone Yanelis Borges MD Primary Care Provider Allergies No [...] as needed. Active Problems Not on file Social History Tobacco Use Types Packs/Day Years Used Date Never Smoker Smokeless Tobacco: Never Used Alcohol Use Drinks/Week oz/Week Comments Yes 5 Cans of beer 5.0 Sex Assigned at Date Recorded Not on file Last Filed Vital Signs Not on file Plan of Treatment Health Maintenance Due Date Last Done Comments LIPID PANEL 11/26/2011 MEDICARE ANNUAL WELLNESS (YEAR 2 or FIRST YEAR if no 10/17/2019 IPPE) INFLUENZA VACCINE (#1) 2019 Results Not on fileafter 03/26/2019 Insurance Payer Benefit Plan Subscriber ID Effective Phone Address Typ e / Group Dates MEDICARE MEDICARE A B [id number] 2018-Pres Medicare ent AETNA - AETNA [id number] 2018-Prese [phone] [address] MEDICARE MGD MEDICARE O nt 12 [id number] CARE POS PPO MELVA BROWN [id number]
[2020-03-26] MEDS ORDERED: HYDROCODONE/APAP 5/325 MG TAB ONE (22:13)
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
--- NOTE | 2020-03-27 07:29 | RAD REPORT ---
EXAM DESCRIPTION: Shakeel Single View03/26/2020 10:45 pm CLINICAL HISTORY: Chest pain COMPARISON: 2019 FINDINGS: The lungs appear clear of acute infiltrate. The heart is normal size IMPRESSION: No acute abnormalities displayed
[2020-03-31 22:47] VITALS: TEMP 98.4; O2SAT 99
[2020-03-31 22:49] VITALS: BP 110/72
== END 2020-03-26 23:09 | disposition home or self-care (01) ==
LOC: ER 21:36
DX: S20.219A Contusion of unspecified front wall of thorax, initial encounter (principal); V49.49XA Driver injured in collision with other motor vehicles in traffic accident, initial encounter; I10 Essential (primary) hypertension; F17.210 Nicotine dependence, cigarettes, uncomplicated; Z85.53 Personal history of malignant neoplasm of renal pelvis
CPT/HCPCS: 71045; 99284

== ENCOUNTER 2020-12-31 07:31 | Emergency (ER) | payer SELFPAY ==
[2020-12-31 08:19] LABS: Absolute Lymphocytes (CBC) 1.9 K/uL (0.7-4.9); Basophils % 0.7 % (0-1.3); Hematocrit 45.3 % (39.6-49.0); MPV 7.2 fL (7.6-11.3); Protime INR 1.09; RBC Red Blood Cell Count 5.72 M/uL (4.33-5.43)
[2020-12-31 08:39] LABS: ALT/SGPT 19 U/L (12-78); AST/SGOT 13 U/L (15-37); Albumin 4.5 g/dL (3.4-5.0); Alkaline Phosphatase 67 U/L (45-117); BUN Blood Urea Nitrogen 17 mg/dL (7-18); Bicarbonate 25 mmol/L (21-32); Bilirubin Direct 0.2 mg/dL (0-0.2); Bilirubin Total 1.1 mg/dL (0.2-1.0); Glucose Level 122 mg/dL (74-106); Magnesium 2.1 mg/dL (1.8-2.4); NT PRO-BNP 5 pg/mL (<125); Potassium 3.9 mmol/L (3.5-5.1); Protein, Total 9.3 g/dL (6.4-8.2); Sodium Level 137 mmol/L (136-145); Troponin (Emerg Dept Use Only) < 0.02 ng/mL (0.0-0.045)
[2020-12-31] MEDS ORDERED: LORazepam 2 MG/ML VIAL ONE (09:00)
--- NOTE | 2020-12-31 09:31 | RAD REPORT ---
EXAM DESCRIPTION: RAD - Chest Single View - 12/31/2020 8:58 am CLINICAL HISTORY: CHEST PAIN COMPARISON: Portable March 2020 TECHNIQUE: AP portable chest image was obtained 12/31/2020 8:58 am . FINDINGS: Lungs are clear. Interstitial pattern matches comparison. Shallow inspiration accentuates the central vasculature and lung markings. Heart and vasculature are normal. No measurable pleural effusion and no pneumothorax. No acute bony a bnormality seen. No acute aortic findings suspected. IMPRESSION: No acute cardiopulmonary process. No significant change comparison.
--- NOTE | 2020-12-31 12:10 | ER ---
Nurse's Notes [facility] Name: Tony Mckeon Age: 45 yrs Sex: Male : 1975 Arrival Date: 12/31/2020 Time: 07:31 Bed 4 Private MD: Wily Borges B Diagnosis: Chest pain, unspecified Presentation: 12/31 07:37 Chief complaint: Patient states: Chest pain and shortness of breath that began lasts ss night. Is worse today. Coronavirus screen: Client denies travel out of the [place] in the last 14 days. Ebola Screen: Patient denies exposure to infectious person. Patient denies travel to an Ebola-affected area in the 21 days before illness onset. Initial Sepsis Screen: Does the patient meet any 2 criteria? No. Patient's initial sepsis screen is negative. Does the patient have a suspected source of infection? No. Patient's initial sepsis screen is negative. Risk Assessment: Do you want to hurt yourself or someone else? Patient reports no desire to harm self or others. Onset of symptoms was December 30, 2020. 07:37 Method Of Arrival: Ambulatory ss 07:37 Acuity: KRISTEN 2 ss Historical: - Allergies: 07:49 No Known Allergies; ss - Home Meds: 07:49 Tylenol #3 Oral [Active]; ss - PMHx: 07:49 Asthma; Bipolar disorder; Gout; Hypertension; Renal Cancer; ss - PSHx: 07:49 Nephrectomy; ss - Immunization history:: Client reports receiving the 2nd dose of the Covid vaccine. - Social history:: Smoking status: Patient denies any tobacco usage or history of. Screenin:49 Abuse screen: Denies threats or abuse. Denies injuries from another. Nutritional hb screening: No deficits noted. Tuberculosis screening: No symptoms or risk factors identified. Fall Risk None identified. Assessment: 07:49 General: Appears in no apparent distress. uncomfortable, Behavior is calm, cooperative. hb Pain: Pain currently is 10 out of 10 on a pain scale. Neuro: Level of Consciousness is awake, alert, obeys commands, Oriented to person, place, time, situation. Cardiovascular: Patient's skin is warm and dry. Rhythm is regular. Respiratory: Respiratory effort is even, unlabored, Respiratory pattern is regular, symmetrical. GI: No signs and/or symptoms were reported involving the gastrointestinal system. : No signs and/or symptoms were reported regarding the genitourinary system. EENT: No signs and/or symptoms were reported regarding the EENT system. Derm: Skin is pink, warm \T\ dry. Musculoskeletal: No signs and/or symptoms reported regarding the musculoskeletal system. 08:49 Reassessment: Patient appears in no apparent distress at this time. Patient and/or hb family updated on plan of care and expected duration. Pain level reassessed. Patient is alert, oriented x 3, equal unlabored respirations, skin warm/dry/pink. Vital Signs: 07:37 BP 138 / 88; Pulse 73; Resp 18; Temp 98.4(TE); Pulse Ox 99% on R/A; Weight 89.36 kg; ss Height 5 ft. 6 in. (167.64 cm); Pain 10/10; 08:49 BP 139 / 86; Pulse 91; Resp 24; Pulse Ox 100% on R/A; hb 10:51 BP 136 / 108; Pulse 61; Resp 18; Pulse Ox 100% on R/A; Pain 7/10; ch5 07:37 Body Mass Index 31.80 (89.36 kg, 167.64 cm) ED Course: 07:31 Patient arrived in ED. ds1 07:31 Wily Borges MD is Private Physician. ds1 07:38 Triage completed. ss 07:41 Zackary Lincoln PA is PHCP. [facility] 07:41 Lee Matthews MD is Attending Physician. [facility] 07:49 Arm band placed on right wrist. ss 07:49 Patient has correct armband on for positive identification. Bed in low position. Call hb light in reach. conveyor monitor on. Pulse ox on. NIBP on. 07:49 Patient maintains SpO2 saturation greater than 95% on room air. hb 07:53 Initial lab(s) drawn, by me, sent to lab. Inserted saline lock: 20 gauge in left dh3 forearm, using aseptic technique. Blood collected. 08:47 Asad Brannon, MICHELLE is Primary Nurse. ch5 08:58 XRAY Chest (1 view) In Process Unspecified. EDMS 12:09 Wily Borges MD is Referral Physician. jmm 12:43 intact. ch5 Administered Medications: 07:49 Drug: Aspirin Chewable Tablet 324 mg Route: PO; hb 08:47 Follow up: Response: No adverse reaction ch5 07:58 Drug: morphine 4 mg Route: IVP; Site: left forearm; hb 08:48 Follow up: Response: Pain is decreased ch5 07:58 Drug: Zofran (Ondansetron) 4 mg Route: IVP; Site: left forearm; hb 08:47 Follow up: Response: No adverse reaction ch5 08:47 Drug: Ativan (LORazepam) 0.5 mg Route: IVP; Site: left antecubital; ch5 09:00 Follow up: Response: Pain is decreased ch5 10:51 Follow up: Response: Pain is decreased ch5 Outcome: 12:10 Discharge ordered by . skip 12:43 Discharged to home ambulatory. 5 12:43 Condition: improved 12:43 Discharge instructions given to patient, Prescriptions given X 1. 12:44 Patient left the ED. 5 Signatures: Dispatcher [employer] EDMS Zackary Lincoln PA PA jmm Sanford, Demi ds1 Andie Hernández RN RN Lucina Thompson, MICHELLE RN Marta Villatoro [facility] Asad Brannon, MICHELLE RN ch5
--- NOTE | 2020-12-31 12:10 | EDPHYS ---
Physician Documentation [facility] Name: Tony Mckeon Age: 45 yrs Sex: Male : 1975 Arrival Date: 12/31/2020 Time: 07:31 Bed 4 Private MD: Wily Borges B ED Physician Lee Matthews HPI: 12/31 07:42 This 45 yrs old Black Male presents to ER via Ambulatory with complaints of Chest Pain, jmm Shortness Of Breath. 07:42 The patient or guardian reports chest pain that is located primarily in the substernal jmm area. Onset: gradually, 1 day(s) ago. Associated signs and symptoms: Pertinent positives: shortness of breath, Pertinent negatives:. The chest pain is described as aching, burning. This is a 45-year-old male with a history of hypertension the presents emerged part with complaints of left sided chest pain beginning last night. Patient states pain worsens with range of motion and radiates to the left trapezius area. Patient states earlier this morning it radiated down the entire left arm. Patient denies smoking, EtOH, cocaine use.. Historical: - Allergies: 07:49 No Known Allergies; ss - Home Meds: 07:49 Tylenol #3 Oral [Active]; ss - PMHx: 07:49 Asthma; Bipolar disorder; Gout; Hypertension; Renal Cancer; ss - PSHx: 07:49 Nephrectomy; ss - Immunization history:: Client reports receiving the 2nd dose of the Covid vaccine. - Social history:: Smoking status: Patient denies any tobacco usage or history of. ROS: 07:42 Constitutional: Negative for fever, chills, and weight loss. jmm 07:42 Cardiovascular: Positive for chest pain. 07:42 All other systems are negative. Exam: 07:42 Constitutional: This is a well developed, well nourished patient who is awake, alert, jmm and in no acute distress. Head/Face: atraumatic. Eyes: EOMI, no conjunctival erythema appreciated ENT: Moist Mucus Membranes Neck: Trachea midline, Supple 07:42 Cardiovascular: Regular rate and rhythm. No edema appreciated Respiratory: Normal respirations, no respiratory distress appreciated Abdomen/GI: Non distended, soft Back: Normal ROM Skin: General appearance color normal MS/ Extremity: Moves all extremities, no obvious deformities appreciated, no edema noted to the lower extremities Neuro: Awake and alert, normal gait Psych: Behavior is normal, Mood is normal, Patient is cooperative and pleasant 07:42 Chest/axilla: Inspection: normal, Palpation: tenderness, that is mild, of the anterior aspect of left upper chest. Vital Signs: 07:37 BP 138 / 88; Pulse 73; Resp 18; Temp 98.4(TE); Pulse Ox 99% on R/A; Weight 89.36 kg; ss Height 5 ft. 6 in. (167.64 cm); Pain 10/10; 08:49 BP 139 / 86; Pulse 91; Resp 24; Pulse Ox 100% on R/A; hb 10:51 BP 136 / 108; Pulse 61; Resp 18; Pulse Ox 100% on R/A; Pain 7/10; ch5 07:37 Body Mass Index 31.80 (89.36 kg, 167.64 cm) ss MDM: 07:41 Patient medically screened. [facility] 12:09 The patient was given aspirin in the Emergency Department. Data reviewed: vital signs, [facility] nurses notes, lab test result(s), radiologic studies, plain films. Counseling: I had a detailed discussion with the patient and/or guardian regarding: the historical points, exam findings, and any diagnostic results supporting the discharge/admit diagnosis, lab results, radiology results, the need for outpatient follow up, to return to the emergency department if symptoms worsen or persist or if there are any questions or concerns that arise at home. Refusal of service: The patient/guardian displays adequate decision making capability and despite a detailed discussion of alternatives, benefits, risks, and consequences refuses: Admission to the hospital for further work-up and treatment. 12/31 07:42 Order name: Basic Metabolic Panel; Complete Time: 08:57 [facility] 12/31 07:42 Order name: CBC with Diff; Complete Time: 08:21 [facility] 12/31 07:42 Order name: LFT's; Complete Time: 08:57 [facility] 12/31 07:42 Order name: Magnesium; Complete Time: 08:57 [facility] 12/31 07:42 Order name: NT PRO-BNP; Complete Time: 08:57 [facility] 12/31 07:42 Order name: PT-INR; Complete Time: 08:57 [facility] 12/31 07:42 Order name: Troponin (emerg Dept Use Only); Complete Time: 08:57 [facility] 12/31 07:42 Order name: XRAY Chest (1 view); Complete Time: 09:38 [facility] 12/31 10:54 Order name: Troponin (emerg Dept Use Only): 4 hr repeat [facility] 12/31 10:54 Order name: Troponin (Emerg Dept Use Only); Complete Time: 12:07 [facility] 12/31 07:42 Order name: EKG; Complete Time: 07:42 [facility] 12/31 07:42 Order name: Cardiac monitoring; Complete Time: 07:49 [facility] 12/31 07:42 Order name: EKG - Nurse/Tech; Complete Time: 07:49 [facility] 12/31 07:42 Order name: IV Saline Lock; Complete Time: 07:55 [facility] 12/31 07:42 Order name: Labs collected and sent; Complete Time: 07:55 [facility] 12/31 07:42 Order name: O2 Per Protocol; Complete Time: 07:49 [facility] 12/31 07:42 Order name: O2 Sat Monitoring; Complete Time: 07:49 [facility] Administered Medications: 07:49 Drug: Aspirin Chewable Tablet 324 mg Route: PO; hb 08:47 Follow up: Response: No adverse reaction ch5 07:58 Drug: morphine 4 mg Route: IVP; Site: left forearm; hb 08:48 Follow up: Response: Pain is decreased ch5 07:58 Drug: Zofran (Ondansetron) 4 mg Route: IVP; Site: left forearm; hb 08:47 Follow up: Response: No adverse reaction ch5 08:47 Drug: Ativan (LORazepam) 0.5 mg Route: IVP; Site: left antecubital; ch5 09:00 Follow up: Response: Pain is decreased ch5 10:51 Follow up: Response: Pain is decreased ch5 Disposition: 13:33 Co-signature as Attending Physician, Lee Matthews MD I agree with the assessment and kdr plan of care. Disposition Summary: 12/31/20 12:10 Discharge Ordered Location: Home [facility] Condition: Stable [facility] Diagnosis - Chest pain, unspecified jmm Followup: [facility] - With: Wily Borges MD - When: 2 - 3 days - Reason: Recheck today's complaints, Continuance of care, Re-evaluation by your physician Discharge Instructions: - Discharge Summary Sheet [facility] - Nonspecific Chest Pain, Adult [facility] Forms: - Medication Reconciliation Form [facility] - Thank You Letter [facility] - Antibiotic Education [facility] - Prescription Opioid Use [facility] Prescriptions: - orphenadrine citrate 100 mg Oral Tablet Sustained Release - take 1 tablet by ORAL route 2 times per day As needed; 20 tablet; Refills: 0, jmm Product Selection Permitted Signatures: Dispatcher [employer] [facility] Lee Matthews MD MD kdr Mickail, Joel, PA PA Andie Sampson RN RN Lucina Thompson, MICHELLE RN Asad Brannon RN RN ch5
[2020-12-31 12:51] VITALS: TEMP 98.4
[2020-12-31 12:52] VITALS: O2SAT 100
[2020-12-31 12:53] VITALS: BP 136/108
== END 2020-12-31 12:44 | disposition home or self-care (01) ==
LOC: ER 07:31
DX: R07.9 Chest pain, unspecified (principal); I10 Essential (primary) hypertension; Z85.53 Personal history of malignant neoplasm of renal pelvis
CPT/HCPCS: 36415; 71045; 80048; 80076; 83735; 83880; 84484; 85025; 85610; 93005; 99285

== ENCOUNTER 2021-01-06 21:11 | Observation (INO) | payer SELFPAY ==
--- NOTE | 2021-01-06 22:07 | RAD REPORT ---
EXAM DESCRIPTION: RAD - Chest Single View - 01/06/2021 10:01 pm CLINICAL HISTORY: Cough;Dyspnea COMPARISON: No comparisonsChest Single View dated 1Chest Single View dated 11/27/2020; Chest Single View dated 1Chest Single View dated 12/31/2020; Chest Single View dated 03/26/2020; Ches t Single View dated 07/05/2018; CHEST SINGLE VIEW dated 04/01/2015 FINDINGS: Lines: None. Lungs: No evidence of edema or pneumonia. Pleural: No significant pleural effusions or pneumothorax. Cardiac: The heart size is within normal limits. Bones: No acute fractures. Other: IMPRESSION: No acute cardiopulmonary disease.
[2021-01-06 22:17] LABS: Absolute Lymphocytes (CBC) 0.7 K/uL (0.7-4.9); Hematocrit 36.9 % (39.6-49.0); Lymphocytes % 13.6 % (15.3-44.8); RBC Red Blood Cell Count 4.66 M/uL (4.33-5.43)
[2021-01-06 22:18] LABS: Protime INR 1.21
[2021-01-06 22:19] LABS: Blood Morphology Comment NOT SEEN (NOT SEEN); Platelet Estimate ADEQ; White Blood Cell Scan OK (OK)
[2021-01-06] MEDS ORDERED: METHYLPREDNISOLONE 125 MG INJ ONE (22:22)
[2021-01-06] MEDS ORDERED: CEFTRIAXONE 1000 MG/VIAL ONE (22:22)
[2021-01-06] MEDS ORDERED: AZITHROMYCIN 500 MG INJ IVPB ONE (22:23)
[2021-01-06] MEDS ORDERED: LEVALBUTEROL 1.25 MG/3 ML NEB ONE ×2 (22:23→23:54)
[2021-01-06] MEDS ORDERED: NA CHLORIDE 0.9% 250 ML ONE (22:24)
[2021-01-06] MEDS ORDERED: IPRATROPIUM BROM 0.5MG/2.5ML ONE (22:24)
[2021-01-06] MEDS ORDERED: NA CHLORIDE 0.9% 1,000 ML ONE (22:24)
[2021-01-06] MEDS ORDERED: NA CHLORIDE 0.9% 100 ML ONE (22:25)
--- NOTE | 2021-01-06 23:09 | ER ---
Nurse's Notes [facility] Name: Tony Mckeon Age: 45 yrs Sex: Male : 1975 Arrival Date: 01/06/2021 Time: 21:14 Bed 26 Private MD: Wily Borges B Diagnosis: Moderate persistent asthma;Chest pain on breathing;Chest pain, unspecified Presentation: 01/06 21:22 Chief complaint: Patient states: SOB start this morning. Coronavirus screen: Vaccine df1 status: Patient reports receiving the 1st dose of the Covid vaccine. Ebola Screen: Patient negative for fever greater than or equal to 101.5 degrees Fahrenheit, and additional compatible Ebola Virus Disease symptoms. Initial Sepsis Screen: Does the patient meet any 2 criteria?. Risk Assessment: Do you want to hurt yourself or someone else? Patient reports no desire to harm self or others. Onset of symptoms was January 06, 2021. 21:22 Method Of Arrival: Ambulatory df1 21:22 Acuity: KRISTEN 3 df1 22:21 Initial Sepsis Screen: Does the patient have a suspected source of infection? No. kc4 Patient's initial sepsis screen is negative. Triage Assessment: 22:17 General: Appears distressed, well groomed, Behavior is cooperative, appropriate for kc4 age. General: Behavior is restless. Pain: Denies pain. Cardiovascular: No deficits noted. Respiratory: Reports shortness of breath at rest on exertion cough that is non-productive, Breath sounds are clear Breath sounds are diminished bilaterally. Onset: The symptoms/episode began/occurred yesterday. GI: No deficits noted. : No deficits noted. Derm: No deficits noted. Musculoskeletal: No deficits noted. Historical: - Allergies: 21:24 No Known Allergies; df1 - Home Meds: 21:24 Tylenol #3 Oral every 4-6 hours for pain [Active]; Norvasc 10 mg Oral tab 1 tab once df1 daily [Active]; albuterol sulfate 1.25 mg/3 mL Nebulizer nebu 3 mL 3 times per day [Active]; - PMHx: 21:24 Asthma; Gout; Hypertension; Renal Cancer; Bipolar disorder; df1 - PSHx: 21:24 Nephrectomy; df1 - Immunization history:: Adult Immunizations up to date, Client reports receiving the 1st dose of the Covid vaccine. - Social history:: Smoking status: Patient denies any tobacco usage or history of. Patient/guardian denies using alcohol, street drugs, tobacco products. - Family history:: not pertinent. Screenin:16 Abuse screen: Denies threats or abuse. Nutritional screening: No deficits noted. On no kc4 prescribed diet Difficulty chewing/swallowing? No Has had N/V for 3 or more days. Tuberculosis screening: No symptoms or risk factors identified. Fall Risk None identified. No fall in past 12 months (0 pts). No secondary diagnosis (0 pts). IV access (20 points). Ambulatory Aid- None/Bed Rest/Nurse Assist (0 pts). Gait- Normal/Bed Rest/Wheelchair (0 pts) Mental Status- Oriented to own ability (0 pts). Total Telles Fall Scale indicates No Risk (0-24 pts). Assessment: 22:21 Pain:. kc4 01/07 01:38 General: Appears in no apparent distress. comfortable, Behavior is calm, cooperative, kc4 appropriate for age, Reports chills for fever for feeling ill for fatigue for 1-2 days. Pain: Complains of pain in Generalized Pain currently is 5 out of 10 on a pain scale. Quality of pain is described as aching, Pain began gradually, Alleviated by medications. Neuro: No deficits noted. Cardiovascular: No deficits noted. Reports chest pain, fatigue, lightheadedness, nausea, Denies Rhythm is regular. Respiratory: Reports shortness of breath cough that is non-productive. GI: No deficits noted. : No deficits noted. Derm: No deficits noted. Musculoskeletal: No deficits noted. Vital Signs: 01/06 21:22 BP 124 / 72; Pulse 85; Resp 20; Temp 99.7; Pulse Ox 98% on R/A; Weight 84.37 kg; Height df1 5 ft. 6 in. (167.64 cm); Pain 10; 23:42 BP 137 / 80; Pulse 108; Resp 20; Temp 99.0(O); Pulse Ox 100% on R/A; Pain 3/10; kc4 01/07 01:52 BP 125 / 74; Pulse 100; Resp 18; Temp 98.8(O); Pulse Ox 98% on R/A; kc4 02:45 BP 110 / 60; Pulse 100; Resp 20; Temp 99.9; Pulse Ox 97% on R/A; kc4 01/06 21:22 Body Mass Index 30.02 (84.37 kg, 167.64 cm) df1 ED Course: 01/06 21:14 Patient arrived in ED. mr 21:14 Wily Borges MD is Private Physician. mr 21:24 Triage completed. df1 21:30 Inserted saline lock: 20 gauge in right antecubital area, using aseptic technique. kc4 21:36 Lester Navarro MD is Attending Physician. adolfo 21:42 Loren Mo is Primary Nurse. kc4 22:02 XRAY Chest (1 view) In Process Unspecified. EDMS 22:12 Lactate Sent. kc4 22:12 Blood Culture Adult (2) Sent. kc4 22:12 Initial Neb Treatment Given as ordered Patient tolerated procedure well without adverse kc4 effect Subsequent Neb Treatment Given as ordered. 22:16 No provider procedures requiring assistance completed. Inserted saline lock: 20 gauge kc4 in right antecubital area, using aseptic technique. 22:16 Patient has correct armband on for positive identification. Placed in gown. Bed in low kc4 position. Call light in reach. Side rails up X 1. monitoring manager on. Pulse ox on. NIBP on. 22:21 Patient maintains SpO2 saturation greater than 95% on room air. kc4 22:21 Arm band placed on right wrist. kc4 23:06 Miguel Monroe is Hospitalizing Provider. adolfo 23:30 Subsequent Neb Treatment Given as ordered Patient tolerated procedure well without kc4 adverse effect. 01/07 00:23 Blood Culture Adult (2) Sent. kc4 Administered Medications: 01/06 22:11 Drug: SOLU-Medrol (methylPrednisoLONE) 125 mg Route: IVP; Site: right antecubital; kc4 01/07 00:23 Follow up: Response: No adverse reaction 4 01/06 22:11 Drug: AtroVENT (ipratropium) Aerosol 0.5 mg Route: Inhalation; kc4 01/07 00:22 Follow up: Response: No adverse reaction 4 01/06 22:11 Drug: Rocephin (cefTRIAXone) 1 grams Route: IV; Rate: per protocol; Site: right kc4 antecubital; 01/07 00:22 Follow up: Response: No adverse reaction 4 01/06 22:12 Drug: NS 0.9% 1000 ml Route: IV; Rate: 125 ml/hr; Site: right antecubital; [facility] 22:12 Drug: Xopenex (levalbuterol) 3.75 mg Route: Inhalation; [facility] 01/07 00:23 Follow up: Response: No adverse reaction [facility] 01/06 22:12 Drug: Zithromax (azithromycin) 500 mg Route: IVPB; Infused Over: 1 hrs; Site: right [facility] antecubital; 01/07 00:22 Follow up: Response: No adverse reaction; IV Status: Completed infusion [facility] 01/06 23:32 Drug: Magnesium Sulfate 2 grams Route: IVPB; Infused Over: 2 hrs; Site: right [facility] antecubital; 01/07 00:22 Follow up: Response: No adverse reaction; IV Status: Completed infusion [facility] 01:52 Follow up: IV Status: Completed infusion [facility] 01/06 23:32 Drug: Xopenex (levalbuterol) 2.5 mg Route: Inhalation; [facility] 01/07 00:21 Follow up: Response: No adverse reaction [facility] 01/06 23:32 Drug: Aspirin Chewable Tablet 324 mg Route: PO; [facility] 01/07 00:21 Follow up: Response: No adverse reaction [facility] 01/06 23:32 Drug: Pepcid (famotidine) 20 mg Route: IVP; Site: right antecubital; [facility] 01/07 00:21 Follow up: Response: No adverse reaction [facility] Outcome: 01/06 23:09 Decision to Hospitalize by Provider. [facility] 01/07 03:00 Admitted to Med/surg accompanied by tech, via stretcher, room 405, Report called to [facility] Ju Genao RN Condition: stable Instructed on the need for admit, Demonstrated understanding of 03:12 Patient left the ED. [facility] Signatures: Dispatcher [employer] EDMS Lester Navarro MD MD cha Rivera, Loren Lopez [facility] Valerie David df1 Corrections: (The following items were deleted from the chart) 01/06 22:15 22:12 CORONAVIRUS+ drawn and sent. [facility] EDGA
--- NOTE | 2021-01-06 23:09 | EDPHYS ---
Physician Documentation [facility] Name: Tony Mckeon Age: 45 yrs Sex: Male : 1975 Arrival Date: 01/06/2021 Time: 21:14 Bed 26 Private MD: Wily Borges B ED Physician Lester Navarro HPI: 01/06 23:02 This 45 yrs old Black Male presents to ER via Ambulatory with complaints of Chest Pain, adolfo Asthma Exacerbation, Decreased Appetite, Chills. 23:02 The patient or guardian reports chest pain that is located primarily in the anterior [facility] chest wall. Onset: 1 day(s) ago. The pain does not radiate. Associated signs and symptoms: The patient has no apparent associated signs or symptoms. The chest pain is described as a heaviness. Severity of pain: At its worst the pain was mild moderate in the emergency department the pain is unchanged. The patient has experienced similar episodes in the past, multiple times. Historical: - Allergies: 21:24 No Known Allergies; df1 - Home Meds: 21:24 Tylenol #3 Oral every 4-6 hours for pain [Active]; Norvasc 10 mg Oral tab 1 tab once df1 daily [Active]; albuterol sulfate 1.25 mg/3 mL Nebulizer nebu 3 mL 3 times per day [Active]; - PMHx: 21:24 Asthma; Gout; Hypertension; Renal Cancer; Bipolar disorder; df1 - PSHx: 21:24 Nephrectomy; df1 - Immunization history:: Adult Immunizations up to date, Client reports receiving the 1st dose of the Covid vaccine. - Social history:: Smoking status: Patient denies any tobacco usage or history of. Patient/guardian denies using alcohol, street drugs, tobacco products. - Family history:: not pertinent. ROS: 23:02 Constitutional: Negative for fever, chills, and weight loss, Eyes: Negative for injury, adolfo pain, redness, and discharge, ENT: Negative for injury, pain, and discharge, Neck: Negative for injury, pain, and swelling, Abdomen/GI: Negative for abdominal pain, nausea, vomiting, diarrhea, and constipation, Back: Negative for injury and pain, : Negative for injury, bleeding, discharge, and swelling, MS/Extremity: Negative for injury and deformity, Skin: Negative for injury, rash, and discoloration, Neuro: Negative for headache, weakness, numbness, tingling, and seizure, Psych: Negative for depression, anxiety, suicide ideation, homicidal ideation, and hallucinations, Allergy/Immunology: Negative for hives, rash, and allergies, Endocrine: Negative for neck swelling, polydipsia, polyuria, polyphagia, and marked weight changes, Hematologic/Lymphatic: Negative for swollen nodes, abnormal bleeding, and unusual bruising. 23:02 Cardiovascular: Positive for chest pain. 23:02 Respiratory: Positive for cough, shortness of breath, wheezing, expiratory. Exam: 23:02 Constitutional: This is a well developed, well nourished patient who is awake, alert, adolfo and in no acute distress. Head/Face: Normocephalic, atraumatic. Eyes: Pupils equal round and reactive to light, extra-ocular motions intact. Lids and lashes normal. Conjunctiva and sclera are non-icteric and not injected. Cornea within normal limits. Periorbital areas with no swelling, redness, or edema. ENT: Nares patent. No nasal discharge, no septal abnormalities noted. Tympanic membranes are normal and external auditory canals are clear. Oropharynx with no redness, swelling, or masses, exudates, or evidence of obstruction, uvula midline. Mucous membranes moist. Neck: Trachea midline, no thyromegaly or masses palpated, and no cervical lymphadenopathy. Supple, full range of motion without nuchal rigidity, or vertebral point tenderness. No Meningismus. Chest/axilla: Normal chest wall appearance and motion. Nontender with no deformity. No lesions are appreciated. Cardiovascular: Regular rate and rhythm with a normal S1 and S2. No gallops, murmurs, or rubs. Normal PMI, no JVD. No pulse deficits. Abdomen/GI: Soft, non-tender, with normal bowel sounds. No distension or tympany. No guarding or rebound. No evidence of tenderness throughout. Back: No spinal tenderness. No costovertebral tenderness. Full range of motion. Male : Normal genitalia with no discharge or lesions. Skin: Warm, dry with normal turgor. Normal color with no rashes, no lesions, and no evidence of cellulitis. MS/ Extremity: Pulses equal, no cyanosis. Neurovascular intact. Full, normal range of motion. Neuro: Awake and alert, GCS 15, oriented to person, place, time, and situation. Cranial nerves II-XII grossly intact. Motor strength 5/5 in all extremities. Sensory grossly intact. Cerebellar exam normal. Normal gait. Psych: Awake, alert, with orientation to person, place and time. Behavior, mood, and affect are within normal limits. 23:02 Respiratory: mild respiratory distress is noted, Respirations: labored breathing, that is mild, Breath sounds: rhonchi, that are mild. 23:52 ECG was reviewed by the Attending Physician. [facility] Vital Signs: 21:22 BP 124 / 72; Pulse 85; Resp 20; Temp 99.7; Pulse Ox 98% on R/A; Weight 84.37 kg; Height df1 5 ft. 6 in. (167.64 cm); Pain 10/10; 23:42 BP 137 / 80; Pulse 108; Resp 20; Temp 99.0(O); Pulse Ox 100% on R/A; Pain 3/10; kc4 01/07 01:52 BP 125 / 74; Pulse 100; Resp 18; Temp 98.8(O); Pulse Ox 98% on R/A; kc4 02:45 BP 110 / 60; Pulse 100; Resp 20; Temp 99.9; Pulse Ox 97% on R/A; kc4 01/06 21:22 Body Mass Index 30.02 (84.37 kg, 167.64 cm) df1 MDM: 01/06 21:36 Patient medically screened. [facility] 23:02 Differential diagnosis: abnormal EKG, acute pericarditis, chest wall pain, adolfo costochondritis, hiatal hernia, pneumonia, stable angina, unstable angina. HEART Score: History: Slightly Suspicious (0), ECG: Non specific repolarization disturbance / LBTB / PM (1), Age: < or = 45 years (0), Risk Factors: 1 or 2 risk factors (1), [Hypertension] [+ Family HX] Troponin: < or = 1 x Normal Limit (0). The patient was given aspirin in the Emergency Department. The patient's deep vein thrombosis risk score was calculated as follows: Total Score: 0. This patient was found to be at low risk for a deep vein thrombosis by using the Well's assessment criteria. The patient's pulmonary embolism risk score was calculated as follows: Total Score: 0-2 points. This patient was found to be at low risk for a pulmonary embolism by using the Well's assessment criteria. CARLOS Risk Score: TOTAL SCORE = 0. Data reviewed: vital signs, nurses notes, lab test result(s), EKG, radiologic studies, plain films. Data interpreted: environmental monitoring specialist: rate is 85 beats/min, rhythm is regular, Pulse oximetry: on room air is 98 %. Test interpretation: by ED physician or midlevel provider: ECG, plain radiologic studies. Counseling: I had a detailed discussion with the patient and/or guardian regarding: the historical points, exam findings, and any diagnostic results supporting the discharge/admit diagnosis, lab results, radiology results, the need for further work-up and treatment in the hospital. 01/06 21:35 Order name: Basic Metabolic Panel [facility] 01/06 21:35 Order name: CBC with Diff; Complete Time: 23:01 [facility] 01/06 21:35 Order name: LFT's [facility] 01/06 21:35 Order name: Magnesium [facility] 01/06 21:35 Order name: NT PRO-BNP [facility] 01/06 21:35 Order name: PT-INR; Complete Time: 23:01 [facility] 01/06 21:35 Order name: Troponin (emerg Dept Use Only) [facility] 01/06 21:35 Order name: XRAY Chest (1 view); Complete Time: 23: [facility] 01/06 21:35 Order name: Blood Culture Adult (2) [facility] 01/06 21:35 Order name: Lactate; Complete Time: 23:01 [facility] 01/06 22:19 Order name: CBC Smear Scan; Complete Time: 23: [facility] 01/07 00:27 Order name: SARS-COV-2 RT PCR [facility] 01/06 21:35 Order name: EKG; Complete Time: 21:36 [facility] 01/06 21:35 Order name: Cardiac monitoring; Complete Time: 22:31 [facility] 01/06 21:35 Order name: EKG - Nurse/Tech; Complete Time: 22: [facility] 01/06 21:35 Order name: IV Saline Lock; Complete Time: 23:25 [facility] 01/06 21:35 Order name: Labs collected and sent; Complete Time: 23:25 [facility] 01/06 21:35 Order name: O2 Per Protocol; Complete Time: 23:25 [facility] 01/06 21:35 Order name: O2 Sat Monitoring; Complete Time: 23:25 [facility] EC:52 Rate is 26 beats/min. Rhythm is regular. QRS [place] is Normal. [place] interval is normal. QRS adolfo interval is normal. QT interval is normal. No Q waves. T waves are Normal. ST Segment is depressed in leads II, III, aVF, V6. Clinical impression: NSR w/ Non-specific ST/T Changes and No evidence of ischemia. Interpreted by me. Reviewed by me. Administered Medications: 22:11 Drug: SOLU-Medrol (methylPrednisoLONE) 125 mg Route: IVP; Site: right antecubital; [facility] 01/07 00:23 Follow up: Response: No adverse reaction [facility] 01/06 22:11 Drug: AtroVENT (ipratropium) Aerosol 0.5 mg Route: Inhalation; [facility] 01/08 00: Follow up: Response: No adverse reaction [facility] 01/06 22:11 Drug: Rocephin (cefTRIAXone) 1 grams Route: IV; Rate: per protocol; Site: right [address]; 01/07 00: Follow up: Response: No adverse reaction [facility] 01/06 22:12 Drug: NS 0.9% 1000 ml Route: IV; Rate: 125 ml/hr; Site: right antecubital; [facility] 22:12 Drug: Xopenex (levalbuterol) 3.75 mg Route: Inhalation; [facility] 01/07 00:23 Follow up: Response: No adverse reaction [facility] 01/06 22:12 Drug: Zithromax (azithromycin) 500 mg Route: IVPB; Infused Over: 1 hrs; Site: right [address]; 01/07 00:22 Follow up: Response: No adverse reaction; IV Status: Completed infusion [facility] 01/06 23:32 Drug: Magnesium Sulfate 2 grams Route: IVPB; Infused Over: 2 hrs; Site: right [facility] antecubital; 01/07 00:22 Follow up: Response: No adverse reaction; IV Status: Completed infusion [facility] :52 Follow up: IV Status: Completed infusion [facility] 01/06 23:32 Drug: Xopenex (levalbuterol) 2.5 mg Route: Inhalation; [facility] 01/07 00:21 Follow up: Response: No adverse reaction [facility] 01/06 23:32 Drug: Aspirin Chewable Tablet 324 mg Route: PO; [facility] 01/07 00:21 Follow up: Response: No adverse reaction kc4 01/06 23:32 Drug: Pepcid (famotidine) 20 mg Route: IVP; Site: right antecubital; kc4 01/07 00:21 Follow up: Response: No adverse reaction kc4 Disposition Summary: 01/06/21 23:09 Hospitalization Ordered Hospitalization Status: Observation adolfo Provider: Miguel Monroe cha Location: Telemetry/MedSurg (observation) adolfo Condition: Stable adolfo Problem: new adolfo Symptoms: have improved adolfo Bed/Room Type: Standard adolfo Room Assignment: 405(01/07/21 02:18) tl1 Diagnosis - Moderate persistent asthma adolfo - Chest pain on breathing adolfo - Chest pain, unspecified adolfo Forms: - Medication Reconciliation Form adolfo - SBAR form adolfo Signatures: Dispatcher [employer] EDLester De MD MD cha Lasagna, Tonya, RN RN tl1 Loren Mo kc4 Valerie David df1 Corrections: (The following items were deleted from the chart) 01/06 22:15 21:36 CORONAVIRUS+MR.LAB.BRZ ordered. EDTX EDMS 01/07 02:18 01/06 23:09 adolfo tl1
[2021-01-06 23:11] LABS: ALT/SGPT 19 U/L (12-78); AST/SGOT 16 U/L (15-37); Albumin 3.8 g/dL (3.4-5.0); Alkaline Phosphatase 66 U/L (45-117); BUN Blood Urea Nitrogen 13 mg/dL (7-18); Bicarbonate 25 mmol/L (21-32); Bilirubin Direct 0.2 mg/dL (0-0.2); Bilirubin Total 0.5 mg/dL (0.2-1.0); Glucose Level 120 mg/dL (74-106); Magnesium 1.9 mg/dL (1.8-2.4); NT PRO-BNP 13 pg/mL (<125); Potassium 3.8 mmol/L (3.5-5.1); Protein, Total 8.1 g/dL (6.4-8.2); Sodium Level 138 mmol/L (136-145); Troponin (Emerg Dept Use Only) < 0.02 ng/mL (0.0-0.045)
[2021-01-06] MEDS ORDERED: ASPIRIN 81 MG CHEWABLE TABLET ONE (23:54)
[2021-01-06] MEDS ORDERED: FAMOTIDINE 20 MG/2 ML VIAL IV ONE (23:54)
[2021-01-06] MEDS ORDERED: Magnesium Sulfate 2gm IVPB 2 G/50 ML BAG IV ONE (23:55)
--- NOTE | 2021-01-07 02:59 | P.HP ---
Certification for Inpatient Patient admitted to: Observation With expected LOS: <2 Midnights Patient will require the following post-hospital care: None Practitioner: I am a practitioner with admitting privileges, knowledge of patient current condition, hospital course, and medical plan of care. Services: Services provided to patient in accordance with Admission requirements found in Title 42 Section 412.3 of the Code of Federal Regulations Patient History Date of Service: 01/07/21 Reason for admission: asthma exacerbation History of Present Illness: Mr. Mckeon is a 45 yo M with asthma, HTN, history of kidney cancer s/p nephrectomy, CKD who presents with one day of worsening cough and SOB. He also reports wheezing, pleuritic chest pain, chills, anorexia and nausea. Denies vomiting. Has had to use his rescue inhaler 3x daily with limited relief. Says it has been several years since he had to be hospitalized for his asthma. Found to COVID+. CXR wnl. Not requiring any O2. Received nebulizer treatments in the ED. Allergies No Known Drug Allergies Allergy (Verified 03/31/15 02:32) Unknown No Known Allergies Allergy (Uncoded 08/21/15 18:45) Unknown Home Medications: Albuterol Sulfate [Proventil Hfa] 1 puff IH PRN 03/31/15 Amlodipine [Norvasc] 20 mg PO DAILY 03/31/15 Budesonide/Formoterol Fumarate [Symbicort 160-4.5 Mcg Inhaler] 2 puff IH DAILY 03/31/15 Divalproex Sodium [Depakote] 1,000 mg PO BID 03/31/15 Albuterol Sulfate [Albuterol Sulfate 0.083% Neb Soln] 2.5 mg NEB Q6H PRN #2 box 04/01/15 Fluticasone/Salmeterol [Advair 250/50 Diskus] 1 puff IH BID #1 disk 04/01/15 Nebulizer Accessories [Aeroneb Go] 1 each MC DAILY #1 each 04/01/15 Nebulizer Accessories [Mouthpiece] 1 each MC DAILY #1 each 04/01/15 Nebulizer [Aeroneb Go Nebulizer] 1 each MC DAILY #1 each 04/01/15 predniSONE [Deltasone] 20 mg PO BID #20 tab 04/01/15 - Past Medical/Surgical History -: kidney cancer -: chronic asthma -: HTN -: Chronic renal failure -: bipolar d/o -: kidney removal -: 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 moist/pink, EOMI, Sclerae nonicteric Neck: Supple, 2+ carotid pulse no bruit, No LAD, Without JVD or thyroid abnormality Respiratory: Normal air movement, Expiratory wheezes Cardiovascular: Regular rate/rhythm, Normal S1 S2 Gastrointestinal: Normal bowel sounds, No tenderness Musculoskeletal: No tenderness, Other (right foot in boot, patient said he cracked his foot in two places ) Integumentary: No rashes Neurological: Normal gait, Normal speech, Normal strength at 5/5 x4 extr, Normal tone, Normal affect Lymphatics: No axilla or inguinal lymphadenopathy - Studies Laboratory Data (last 24 hrs) 01/06/21 21:43: PT 13.9 H, INR 1.21 01/06/21 21:43: WBC 5.40 D, Hgb 11.9 L D, Hct 36.9 L D, Plt Count 389 01/06/21 21:43: Sodium 138, Potassium 3.8, BUN 13, Creatinine 1.82 H, Glucose 120 H, Magnesium 1.9, Total Bilirubin 0.5, AST 16, ALT 19, Alkaline Phosphatase 66 Assessment and Plan - Problems (Diagnosis) (1) COVID Current Visit: Yes Status: Acute (2) Asthma exacerbation Onset Date: 03/31/15 Current Visit: No Status: Acute Qualifiers: Asthma severity: mild Asthma persistence: unspecified Qualified Code(s): J45.901 - Unspecified asthma with (acute) exacerbation (3) Hypertension Onset Date: 03/31/15 Current Visit: No Status: Chronic Qualifiers: Hypertension type: primary hypertension Qualified Code(s): I10 - Essential (primary) hypertension (4) Renal insufficiency Onset Date: 03/31/15 Current Visit: No Status: Chronic - Plan continue IV Steroids, O2 as needed, monitor for hypoxia procal pending tessalon perles as needed anemia workup pending reconcile and continue home medications DVT ppx t Discharge Plan: Home Plan to discharge in: 24 Hours - Advance Directives Does patient have a Living Will: No Does patient have a Durable POA for Healthcare: No - Code Status/Comfort Care Code Status Assessed: Yes (full code ) Critical Care: No Time Spent Managing Pts Care (In Minutes): 70
[2021-01-07 04:02] VITALS: BMI 29.7
[2021-01-07] MEDS ORDERED: BENZONATATE 100 MG CAP PO PRN (04:24)
[2021-01-07] MEDS ORDERED: ACETAMINOPHEN 500 MG TAB PO PRN (04:24)
[2021-01-07] MEDS ORDERED: ONDANSETRON 4 MG/2 ML VIAL IV PRN (04:24)
[2021-01-07] MEDS: HEPARIN 5000 UNIT/ML 1 ML VIAL SQ SCH ×2 (04:24→09:02)
[2021-01-07] MEDS: IPRATROPIUM BROM 0.5MG/2.5ML NEB SCH ×2 (05:09→08:00)
[2021-01-07 06:10] LABS: Ferritin 165.8 ng/mL (26-388); Folic Acid, (Folate) 17.8 ng/mL (3.1-17.5)
[2021-01-07] MEDS: METHYLPREDNISOLONE 40 MG INJ IV SCH ×2 (06:34→11:10)
[2021-01-07] MEDS ORDERED: ALBUTEROL 2.5 MG/3 ML NEB SOL NEB SCH (08:00)
--- NOTE | 2021-01-07 11:19 | P.DS ---
Discharge Date: 01/07/21 Disposition: ROUTINE DISCHARGE Discharge Condition: GOOD Reason for Admission: asthma exacerbation Brief History of Present Illness: Mr. Mckeon is a 45 yo M with asthma, HTN, history of kidney cancer s/p nephrectomy, CKD who presents with one day of worsening cough and SOB. He also reports wheezing, pleuritic chest pain, chills, anorexia and nausea. Denies vomiting. Has had to use his rescue inhaler 3x daily with limited relief. Says it has been several years since he had to be hospitalized for his asthma. Found to COVID+. CXR wnl. Not requiring any O2. Received nebulizer treatments in the ED. Vital Signs/Physical Exam: Temp Pulse Resp BP Pulse Ox 99.3 F 90 24 H 127/75 97 01/07/21 08:00 01/07/21 08:00 01/07/21 08:00 01/07/21 08:00 01/07/21 08:00 Laboratory Data at Discharge: WBC 5.40 K/uL (4.3-10.9) D 01/06/21 21:43 Hgb 11.9 g/dL (13.6-17.9) L D 01/06/21 21:43 Hct 36.9 % (39.6-49.0) L D 01/06/21 21:43 Plt Count 389 K/uL (152-406) 01/06/21 21:43 PT 13.9 SECONDS (9.5-12.5) H 01/06/21 21:43 INR 1.21 01/06/21 21:43 Sodium 138 mmol/L (136-145) 01/06/21 21:43 Potassium 3.8 mmol/L (3.5-5.1) 01/06/21 21:43 BUN 13 mg/dL (7-18) 01/06/21 21:43 Creatinine 1.82 mg/dL (0.55-1.3) H 01/06/21 21:43 Glucose 120 mg/dL (74-106) H 01/06/21 21:43 Magnesium 1.9 mg/dL (1.8-2.4) 01/06/21 21:43 Total Bilirubin 0.5 mg/dL (0.2-1.0) 01/06/21 21:43 AST 16 U/L (15-37) 01/06/21 21:43 ALT 19 U/L (12-78) 01/06/21 21:43 Alkaline Phosphatase 66 U/L (45-117) 01/06/21 21:43 Troponin I < 0.02 ng/mL (0.0-0.045) 01/07/21 05:09 Home Medications: Albuterol Sulfate [Proventil Hfa] 1 puff IH PRN 03/31/15 Amlodipine [Norvasc*] 20 mg PO DAILY 03/31/15 Albuterol Sulfate [Albuterol Sulfate 0.083% Neb Soln] 2.5 mg NEB Q6H PRN #2 box 04/01/15 Fluticasone/Salmeterol [Advair 250/50 Diskus*] 2 puff IH DAILY 01/07/21 Nebulizer Accessories [Aeroneb Go] 1 each MC PRN PRN 01/07/21 Nebulizer Accessories [Mouthpiece] 1 each MC PRN PRN 01/07/21 Nebulizer [Aeroneb Go Nebulizer] 1 each MC PRN PRN 01/07/21 predniSONE [Prednisone*] 20 mg PO BID #11 tab 01/07/21 New Medications: predniSONE [Prednisone*] 20 mg PO BID #11 tab Physician Discharge Instructions: OK TO DC IV AND DC HOME FOLLOW-UP WITH PRIMARY CARE PROVIDER IN 1-2 WEEKS FOLLOW-UP WITH Pulmonary IN 1-2 WEEKS RETURN TO THE ER IF symptoms worsen CALL or TEXT DR. ESPINOZA AT [phone] IF ANY QUESTIONS REGARDING HOSPITAL STAY. PLEASE CALL THE FLOOR AT [phone] IF ANY MEDICATION OR NURSING QUESTIONS. Diet: AHA Activity: Fall precautions Followup: Wily Borges MD [Primary Care Provider] -
[2021-01-07 11:58] VITALS: O2SAT 99
[2021-01-07 12:45] VITALS: BP 129/79; TEMP 99.1
== END 2021-01-07 13:46 | disposition home or self-care (01) ==
LOC: ER 21:11 → ERHOLD 01-07 00:23 → 4TH 01-07 02:35
PROVIDERS: ADMIT Hospitalist; ATTEND Hospitalist
DX: U07.1 COVID-19 (principal); J45.901 Unspecified asthma with (acute) exacerbation; I12.9 Hypertensive chronic kidney disease with stage 1 through stage 4 chronic kidney disease, or unspecified chronic kidney disease; N18.9 Chronic kidney disease, unspecified; M10.9 Gout, unspecified; F31.9 Bipolar disorder, unspecified; Z85.528 Personal history of other malignant neoplasm of kidney; Z90.5 Acquired absence of kidney; Z82.49 Family history of ischemic heart disease and other diseases of the circulatory system
CPT/HCPCS: 36415; 71045; 80048; 80076; 82607; 82728; 82746; 83540; 83605; 83735; 83880; 84145; 84466; 84484; 85025; 85610; 87040; 93005; 94640; 94760; 96365; 96375; 99285; G0378; J0456; J1644; J2920; J2930; J3475; J7030; J7050; U0003